=== PATIENT | female | born 1975 | race Caucasian/White ===

== ENCOUNTER 2023-01-21 21:01 | Emergency (ER) | payer OTHER, SELFPAY ==
--- NOTE | ~2023-01-21 | CT_ITS ---
EXAMINATION: CT ABDOMEN AND PELVIS WITHOUT CONTRAST CLINICAL INFORMATION: Right-sided abdominal pain. COMPARISON: None available. TECHNIQUE: Multidetector volumetric imaging was performed from the superior aspect of the liver through the pubic symphysis. Sagittal and coronal reformatted images were obtained on the technologist's workstation. This CT examination was performed using dose optimization techniques as appropriate, variously including the following: *Automated exposure control *Adjustment of mA and/or kV according to patient size (this includes techniques or standardized protocols for targeted exams where dose is matched to indication/reason for exam; i.e. extremities or head) *Use of iterative reconstruction technique DLP: 439 mGy-cm FINDINGS: LUNG BASES: The visualized lung bases are unremarkable. LIVER, GALLBLADDER, AND BILIARY TREE: The liver is of mild diminished attenuation. No focal liver lesions are seen. There is no intrahepatic biliary duct dilatation The gallbladder is unremarkable with no evidence of radiopaque gallstones, gallbladder wall thickening, or obvious pericholecystic inflammatory changes. PANCREAS: Unremarkable. SPLEEN: Unremarkable. ADRENAL GLANDS: Unremarkable. KIDNEYS AND URETERS: The kidneys are normal in size, shape, and attenuation. There is a 1 mm calculus upper pole right kidney and a 2 mm calculus lower pole left kidney. There is no hydronephrosis. BLADDER: Unremarkable. GASTROINTESTINAL TRACT: The small and large bowel are unremarkable. The appendix is unremarkable. ABDOMINAL WALL: No significant hernia is appreciated. LYMPH NODES: Normal. VASCULAR: Unremarkable. PELVIC VISCERA: Unremarkable. OSSEOUS STRUCTURES: Unremarkable. CT/CT abdomen pelvis wo IV con IMPRESSION: Nonobstructing renal calculi. Mild fatty infiltration of the liver. No acute intra-abdominal process. Fleischner guidelines were followed.
[2023-01-21 21:06] VITALS: BP 155/93; PULSE 72; RESP 16; TEMP 36.4; O2SAT 98; BMI 26.2
--- NOTE | 2023-01-21 21:26 | MHC.EDTECH ---
Patient brought in from waiting area, labs and urine were obtained and sent to lab.
[2023-01-21 21:31] LABS: MANUAL DIFF FLAG NO
[2023-01-21 21:32] LABS: Basophils Absolute Auto 0.1 X10*3/uL (0.0-0.2); Basophils Percent Auto 0.6 % (0-2); Eosinophils Absolute Auto 0.1 X10*3/uL (0.0-0.4); Hematocrit 40.2 % (37.0-47.0); Hemoglobin 13.4 g/dl (12.0-16.0); Imm Gran Abs Auto 0.03 X10*3/uL (0.00-0.03); Imm Gran Pct Auto 0.3 % (0.0-0.4); Lymphocytes Percent Auto 37.8 % (20-40); Mean Corpuscular HGB Conc 33.3 g/dl (31.0-35.0); Mean Corpuscular Hemoglobin 28.1 pg (27.0-33.0); Mean Corpuscular Volume 84.3 fL (80.0-98.0); Monocytes Absolute Auto 0.7 X10*3/uL (0.1-1.2); Monocytes Percent Auto 6.3 % (2-11); Neutrophils Absolute Auto 5.7 x10*3/uL (2.0-8.3); Platelet Count 383 X10*3/uL (160-400); Red Blood Count 4.77 X10*6/uL (4.20-5.50); Red Cell Distribution Width 13.4 % (11.0-16.0); White Blood Count 10.5 X10*3/uL (4.8-10.8)
[2023-01-21 21:34] LABS: Appearance Urine Clear; Color Urine Yellow; Glucose Urine UA Negative (Negative); Leukocyte Esterase Urine Negative (Negative); Nitrite Urine Negative (Negative); UMIC TRIGGER UACC YES; Urine Blood Trace (Negative); Urine Ketones Negative (Negative); Urine Protein Negative (Neg-Trace)
[2023-01-21 21:36] LABS: Bacteria Urine None Seen (None Seen); Hyaline Casts Urine 0-2 /LPF (0-2); RBC Urine 0-2 /HPF (0-2); Squamous Epithelial Cell Urine 0-2 /HPF (0-2); WBC Urine 0-5 /HPF (0-5)
[2023-01-21 21:46] LABS: Alanine Aminotransferase 25 U/L (0-31); Albumin Level 4.7 g/dL (3.5-5.0); Alkaline Phosphatase 40 U/L (39-117); Anion Gap 14 (12-20); Aspartate Amino Transferase 16 U/L (5-31); Bilirubin Direct 0.1 mg/dL (0.0-0.5); Bilirubin Total 0.3 mg/dL (0.0-1.0); Blood Urea Nitrogen 11 mg/dL (9-16); Calcium 9.8 mg/dL (8.4-10.2); Carbon Dioxide 27 mmol/L (22-29); Chloride 107 mmol/L (96-108); Creatinine Clr Calc Pharmacy 93.6; Estimated Glomerular Filt Rate > 60; Glucose Random 109 mg/dL (60-115); Lipase 32 U/L (8-78); Potassium 3.7 mmol/L (3.3-5.1); Sodium 144 mmol/L (135-145); Total Protein 8.5 g/dL (6.5-8.0)
--- NOTE | 2023-01-21 22:27 | ED.ABDPAIN ---
HPI - Abdominal Pain General Chief Complaint: Abdominal Pain Stated Complaint: Right side pain burning sensation,nausea Time Seen by Provider: 01/21/23 22:27 Source: patient Mode of arrival: ambulatory Limitations: no limitations History of Present Illness HPI narrative: Patient with chronic lower abdominal pain after hysterectomy last year was told that she has a cyst came from [place] 3 days ago complaining of pain for last 3 days in right upper abdomen also assisted with nausea no vomiting no diarrhea no fever or chills patient never had similar pain in the past does have some heartburn sedation no urinary symptoms no hematuria bowel movements been normal Related Data Previous Rx's Medication Instructions Recorded pantoprazole 40 mg tablet,delayed 40 mg PO DAILY #30 tabs 01/22/23 release (Protonix) tramadol 50 mg tablet 50 mg PO Q6H PRN pain #20 tabs 01/22/23 Allergies Allergy/AdvReac Type Severity Reaction Status Date / Time No Known Allergies Allergy Verified 01/21/23 21:16 Review of Systems Review of Systems Yes all other systems are reviewed and are negative PMFSH Past Medical History Medical History Ovarian cyst Surgical History History of hysterectomy Social History Social History Alcohol intake: never Smoked in Last 30 Days: No Use of substances other than those prescribed or required for medical reasons: No Advance Directives: No Advance Directives Information Provided: Yes Patient : No Physical Exam ED Vital Signs: Vital Signs - 24 hr 01/21/23 21:06 01/21/23 23:52 Temperature 97.6 F 97.8 F Pulse Rate 72 77 Respiratory Rate 16 18 Blood Pressure 155/93 H 125/74 Pulse Oximetry 98 98 Oxygen Delivery Method Room Air Room Air BMI result Body Mass Index 26.2 Appearance: Alert. Oriented X3. No acute distress. Eyes: No pallor or icterus ENT: Pharynx normal. Oral Mucosa moist Neck: Normal inspection. Neck supple. CVS: Normal heart rate and rhythm. Pulses normal. Respiratory: No respiratory distress. Equal air entry bilateral, Abdomen: Soft , deep tenderness suprapubic area and right upper quadrant no rebound tenderness or guarding Bowel sounds are present, no mass palpable, no CVA tenderness Skin: Skin warm and dry. Normal skin color. Normal skin turgor. Extremities: No lower extremity edema. No calf tenderness Neuro: Oriented X 3. Medical Decision Making Medical Decision Making [facility] Narrative: Patient has nonspecific pain in right upper quadrant epigastric or with no history of gallstones in the past patient had evaluation done for similar pain last year at [place] which was negative. Here also patient labs are stable CT scan showed no gallstones or kidney stone does have fatty liver may be the cause of the pain will discharge home on PPI advised for dietary restriction Differential Diagnosis Differential Diagnoses: The differential diagnosis associated with the presentation includes Ovarian cyst/gallstones/gastritis/kidney stone Lab Data [facility] Lab Attestation statement: I reviewed the patient's lab results. 01/21/23 21:24 01/21/23 21:24 Labs: Lab Results 01/21/23 Range/Units 21:24 WBC 10.5 (4.8-10.8) X10*3/uL RBC 4.77 (4.20-5.50) X10*6/uL Hgb 13.4 (12.0-16.0) g/dl Hct 40.2 (37.0-47.0) % MCV 84.3 (80.0-98.0) fL MCH 28.1 (27.0-33.0) pg MCHC 33.3 (31.0-35.0) g/dl RDW 13.4 (11.0-16.0) % Plt Count 383 (160-400) X10*3/uL MPV 9.0 L (9.4-12.3) fL Immature Gran % (Auto) 0.3 (0.0-0.4) % Neut % (Auto) 54.0 (45-73) % Lymph % (Auto) 37.8 (20-40) % [place] % (Auto) 6.3 (2-11) % Eos % (Auto) 1.0 (0-4) % Baso % (Auto) 0.6 (0-2) % Lymph # (Auto) 4.0 (1.2-4.9) X10*3/uL [place] # (Auto) 0.7 (0.1-1.2) X10*3/uL Eos # (Auto) 0.1 (0.0-0.4) X10*3/uL Baso # (Auto) 0.1 (0.0-0.2) X10*3/uL Abs Immat Gran (auto) 0.03 (0.00-0.03) X10*3/uL Absolute Neuts (auto) 5.7 (2.0-8.3) x10*3/uL Absolute Nucleated RBC 0.000 (0.0-0.012) X10*3/uL Nucleated RBC % (auto) 0.0 (0.0-0.2) /100WBC Sodium 144 (135-145) mmol/L Potassium 3.7 (3.3-5.1) mmol/L Chloride 107 (96-108) mmol/L Carbon Dioxide 27 (22-29) mmol/L Anion Gap 14 (12-20) BUN 11 (9-16) mg/dL Creatinine 0.69 (0.5-1.4) mg/dL Estim Creat Clear Calc 93.6 Estimated GFR > 60 Random Glucose 109 (60-115) mg/dL Calcium 9.8 (8.4-10.2) mg/dL Total Bilirubin 0.3 (0.0-1.0) mg/dL Direct Bilirubin 0.1 (0.0-0.5) mg/dL AST 16 (5-31) U/L ALT 25 (0-31) U/L Alkaline Phosphatase 40 (39-117) U/L Total Protein 8.5 H (6.5-8.0) g/dL Albumin 4.7 (3.5-5.0) g/dL Lipase 32 (8-78) U/L Urine Color Yellow Urine Appearance Clear Urine pH 6.0 (5.0-9.0) Ur Specific [place] 1.010 (1.005-1.025) Urine Protein Negative (Neg-Trace) mg/dL Urine Glucose (UA) Negative (Negative) mg/dL Urine Ketones Negative (Negative) mg/dL Urine Blood Trace H (Negative) Urine Nitrite Negative (Negative) Ur Leukocyte Esterase Negative (Negative) Urine RBC 0-2 (0-2) /HPF Urine WBC 0-5 (0-5) /HPF Ur Squamous Epith Cells 0-2 (0-2) /HPF Urine Bacteria None Seen (None Seen) Hyaline Casts 0-2 (0-2) /LPF Independent Interpretation I performed an independent interpretation of an: CT Scan Radiology Impression Discussion of test interpretation with radiology: I have reviewed the radiologist's reading. Medications Administered Discontinued Medications Generic Name Dose Route Start Last Admin Trade Name Freq PRN Reason Stop Dose Admin Famotidine 20 mg 01/21/23 22:55 01/21/23 23:27 Famotidine/Pf 20 Mg/2 Ml Vial IVPUSH 01/21/23 22:56 20 mg ONCE ONE Administration Sodium Chloride 1,000 mls @ 999 mls/hr 01/21/23 22:55 01/21/23 23:28 Ns IV 01/21/23 23:55 999 mls/hr .Q1H1M ONE Administration Ketorolac Tromethamine 30 mg 01/21/23 22:55 01/21/23 23:27 Ketorolac Tromethamine 30 Mg/Ml Vial IVPUSH 01/21/23 22:56 30 mg ONCE ONE Administration Ondansetron HCl 4 mg 01/21/23 22:55 01/21/23 23:27 Ondansetron Hcl 4 Mg/2 Ml Vial IVPUSH 01/21/23 22:56 4 mg ONCE ONE Administration Discharge Plan Discharge Clinical Impression: Fatty liver, Chronic abdominal pain Patient Disposition: Home, Self-Care Instructions: Non-Alcoholic Fatty Liver Disease (ED), Chronic Abdominal Pain (ED) Additional Instructions: Decreased carbohydrate intake Medication for acid reflux as prescribed Tramadol for chronic pain Do not take ibuprofen/Advil Disminuci?n de la ingesta de carbohidratos Medicamentos para el reflujo ?cido seg?n lo recetado. Tramadol para el dolor cr?buck No tome ibuprofeno/Advil Prescriptions: New pantoprazole [Protonix] 40 mg tablet,delayed release (DR/EC) 40 mg PO DAILY Qty: 30 0RF tramadol 50 mg tablet 50 mg PO Q6H PRN (Reason: pain) Qty: 20 0RF Print Language: Portuguese
[2023-01-21] MEDS: ondansetron HCL 4 MG/2 ML VIAL IVPUSH (23:27)
[2023-01-21] MEDS: Famotidine/PF 20 MG/2 ML VIAL IVPUSH (23:27)
[2023-01-21] MEDS: Ketorolac Tromethamine 30 MG/ML VIAL IVPUSH (23:27)
[2023-01-21] MEDS: 0.9 % Sodium Chloride 1,000 ML 999 ML IV (23:28)
[2023-01-21 23:52] VITALS: BP 125/74; PULSE 77; RESP 18; TEMP 36.6; O2SAT 98
== END 2023-01-22 00:45 | disposition home or self-care (01) ==
PROVIDERS: Emergency Provider Internal Medicine
DX: K76.0 Fatty (change of) liver, not elsewhere classified (principal); G89.29 Other chronic pain; R10.31 Right lower quadrant pain; R10.11 Right upper quadrant pain; Z90.710 Acquired absence of both cervix and uterus
CPT/HCPCS: 36415; 74176; 80048; 80076; 81001; 83690; 85025; 96361; 96374; 96375; 99284; J1885; J2405

== ENCOUNTER 2025-01-07 12:41 | Emergency (ER) | payer MEDICAID, SELFPAY ==
--- NOTE | ~2025-01-07 | CT_ITS ---
CLINICAL HISTORY: abdominal pain CT abdomen and pelvis with contrast Comparison: CT/SR - CT ABDOMEN PELVIS WITHOUT IV CONTRAST - 01/21/23 23:13 EST Findings: The lung bases are clear. The gallbladder and solid organs are within normal limits. No renal stones. In the ileum, distal heterogeneous low-attenuation lesion, 2.2 cm, axial image number 76 of 105 series 3. The appendix is within normal limits. No acute fracture. IMPRESSION: 1. Distal ileal lesion, 2.2 cm, heterogeneous and low-attenuation suggestive of probable Meckel's diverticulum. 2. No acute intraabdominal or pelvic findings. This document has been electronically signed by: Roberto Azul MD on 01/07/2025 23:27:23
[2025-01-07 13:06] VITALS: BP 117/62; PULSE 65; RESP 16; TEMP 36.8; O2SAT 97; BMI 23.2
--- NOTE | 2025-01-07 13:08 | ED_ITS ---
HPI - General Adult General Chief complaint: Abdominal Pain Stated complaint: R Side Abd Pain No Appetite Time Seen by Provider: 01/07/25 19:35 Source: patient and foreign language interpreter Mode of arrival: ambulatory Limitations: language barrier History of Present Illness ED Provider: HPI narrative: 49-year-old woman just got here from [place], has been having right upper quadrant pain, sounds like she has had significant workup including 2 ultrasounds, endoscopy, they could not do colonoscopy, recurrent constipation, sounds like she was also treated for presumed H pylori but then the biopsy came back negative she is here with a son, patient has [facility] to find out what is going on with her abdomen according to her son just obtained health insurance. Has a history of hysterectomy and . Related Data Previous Rx's ?Medication ?Instructions ?Recorded pantoprazole 40 mg tablet,delayed 40 mg PO DAILY #30 t abs 01/22/23 release (Protonix) tramadol 50 mg tablet 50 mg PO Q6H PRN pain #20 ta bs 01/22/23 omeprazole 40 mg capsule,delayed 40 mg PO DAILY 90 day s #90 caps 01/07/25 release ondansetron 4 mg disintegrating 4 mg PO Q8H PRN nausea and 01/07/25 tablet vomiting #4 tabs sucralfate 1 gram tablet (Carafate) 1 g PO Q6H 7 days #28 tabs 01/07/25 Allergies Allergy/AdvReac Type Severity Reaction Status Date / Time No Known Allergies Allergy Verified 01/07/25 13:10 Review of Systems 2 Constitutional: Constitutional: Reports as per [facility] Past Medical History Medical History Ovarian cyst Surgical History History of hysterectomy Social History Social History Alcohol intake: never Advance Directives: No Advance Directives Information Provided: Yes Physical Exam ED Exam Exam: General: ?Appears of stated age ? ?PERRLA, EOMI, MMM, ? Neck: Supple, no LAD ? ?CV: RRR, no obvious murmurs appreciated ? ?Resp: ?No wheezing rales rhonchi no stridor moving air well ? Abd: ?Bowel sounds are present, epigastric, right upper quadrant and generalized tenderness no distention no rigidity no guarding ? ?MSK: FROM, strength 5/5 all extremities ? Skin: Warm, dry, intact, ? ?Neuro: ?Alert and oriented x3, moving upper and lower extremities symmetrically, no obvious facial asymmetry noted, cranial nerves 2-12 intact Vital Signs: Vital Signs - 24 hr 01/07/25 13:06 01/07/25 18:45 01/07/25 22:13 Temperature 98.2 F 98.2 F Pulse Rate 65 69 64 Respiratory Rate 16 18 18 Blood Pressure 117/62 114/74 113/69 Pulse Oximetry 97 100 98 Oxygen Delivery Method Room Air Room Air Room Air BMI result Body Mass Index 23.2 Course Course Course Narrative: Rapid medical examination performed in triage by Shirley Naqvi PA-C: Patient is a 49 year old assigned female at presenting to the emergency department with abdominal pain. Detailed physical exam and review of systems are deferred to the mine technician. Labs ordered. Patient placed back in the waiting room pending room availability and results. Medications Administered Discontinued Medications Generic Name Dose Route Start Last Admin Trade Name Freq PRN Reason Stop Dose Admin Al Hydroxide/Mg Hydroxide 15 ml 01/07/25 20:36 01/07/25 22:02 Magnesium Hydrox/Alum Hydrox 30 Ml Oral.Susp PO 01/07/25 20:37 15 ml ONCE ONE Administration Belladonna Alkaloids/Phenobarbital 10 ml 01/07/25 20:36 01/07/25 22:02 Phenobarb/Hyoscy/Atropine/Scop 10 Ml Elixir PO 01/07/25 20:37 10 ml ONCE ONE Administration Famotidine 20 mg 01/07/25 20:36 01/07/25 22:02 Famotidine/Pf 20 Mg/2 Ml Vial IVPUSH 01/07/25 20:37 20 mg ONCE ONE Administration Iohexol 85 ml 01/07/25 22:31 01/07/25 22:31 Iohexol 350 Mg/Ml 100 Ml Infus..Btl IV 01/07/25 22:32 85 ml ONCE ONE Administration Lidocaine HCl 15 ml 01/07/25 20:36 01/07/25 22:02 Lidocaine Hcl Viscous 2 % 15 Ml Solution PO 01/07/25 20:37 15 ml ONCE ONE Administration Ondansetron HCl 4 mg 01/07/25 20:36 01/07/25 22:01 Ondansetron Hcl 4 Mg/2 Ml Vial IVPUSH 01/07/25 20:37 4 mg ONCE ONE Administration Medical Decision Making Medical Decision Making [facility] Narrative: 8:42 PM 01/07/2025 (Dr. Tha Figueroa): Sounds like patient had fairly involved workup in [place] but now we will be pneumonitis states and trying to get different answers regarding her abdominal pain, blood work is reassuring, no evidence for dehydration, no elevation of the LFTs, she did have ultrasound reportedly twice offered a CAT scan, symptomatic control, she is otherwise stable Differential Diagnosis Differential Diagnoses: The differential diagnosis associated with the presentation includes (Cholecystitis, pancreatitis, hepatitis, gastritis, cholangitis, choledocholithiasis, SBO, IBS) Admission/Observation Consideration of admission/observation: Escalation of care including admission/observation considered Lab Data [facility] Lab Attestation statement: I reviewed the patient's lab results. 01/07/25 13:26 01/07/25 13:26 Labs: Lab Results 01/07/25 01/07/25 Range/Units 13:26 18:46 WBC 10.6 (4.8-10.8) X10*3/uL RBC 4.82 (4.20-5.50) X10*6/uL Hgb 13.5 (12.0-16.0) g/dl Hct 40.6 (37.0-47.0) % MCV 84.2 (80.0-98.0) fL MCH 28.0 (27.0-33.0) pg MCHC 33.3 (31.0-35.0) g/dl RDW 13.1 (11.0-16.0) % Plt Count 306 (160-400) X10*3/uL MPV 10.0 (9.4-12.3) fL Immature Gran % (Auto) 0.4 (0.0-0.4) % Neut % (Auto) 68.4 (45-73) % Lymph % (Auto) 22.7 (20-40) % [place] % (Auto) 6.8 (2-11) % Eos % (Auto) 1.0 (0-4) % Baso % (Auto) 0.7 (0-2) % Lymph # (Auto) 2.4 (1.2-4.9) X10*3/uL [place] # (Auto) 0.7 (0.1-1.2) X10*3/uL Eos # (Auto) 0.1 (0.0-0.4) X10*3/uL Baso # (Auto) 0.1 (0.0-0.2) X10*3/uL Abs Immat Gran (auto) 0.04 H (0.00-0.03) X10*3/uL Absolute Neuts (auto) 7.2 (2.0-8.3) x10*3/uL Absolute Nucleated RBC 0.000 (0.0-0.012) X10*3/uL Nucleated RBC % (auto) 0.0 (0.0-0.2) /100WBC Sodium 141 (135-145) mmol/L Potassium 4.1 (3.3-5.1) mmol/L Chloride 105 (96-108) mmol/L Carbon Dioxide 31 H (22-29) mmol/L Anion Gap 9 L (12-20) BUN 18 H (9-16) mg/dL Creatinine 0.76 (0.5-1.4) mg/dL Estim Creat Clear Calc 71.6 Estimated GFR > 60 Random Glucose 118 H (60-115) mg/dL Calcium 9.6 (8.4-10.2) mg/dL Magnesium 1.7 (1.6-2.6) mg/dL Total Bilirubin 0.4 (0.0-1.0) mg/dL AST 16 (5-31) U/L ALT 18 (0-31) U/L Alkaline Phosphatase 43 (39-117) U/L Total Protein 7.7 (6.5-8.0) g/dL Albumin 4.5 (3.5-5.0) g/dL Urine Color Yellow Urine Appearance Clear Urine pH 6.0 (5.0-9.0) Ur Specific [place] 1.010 (1.005-1.025) Urine Protein Negative (Neg-Trace) mg/dL Urine Glucose (UA) Negative (Negative) mg/dL Urine Ketones Negative (Negative) mg/dL Urine Blood Negative (Negative) Urine Nitrite Negative (Negative) Ur Leukocyte Esterase Negative (Negative) Radiology Impression Discussion of test interpretation with radiology: I have reviewed the radiologist's reading. (1. Distal ileal lesion, 2.2 cm, heterogeneous and low- attenuation suggestive of probable Meckel's diverticulum. 2. No acute intraabdominal or pelvic findings.) Discharge Plan Discharge Clinical Impression: Abdominal pain, chronic, epigastric, Gastritis Patient Disposition: Home, Self-Care Additional Instructions: Your CAT scan did not reveal any abnormalities, your blood work is reassuring, I recommend you take omeprazole, for the next 1 week Carafate 1 pill 20 minutes before any meals Zofran as needed for nausea and vomiting, you can use MiraLax 3 times a day if you feel that you are constipated with that said in order to produce adequate amount of stool you need to eat on a regular basis and make sure that you were diet contains fiber, there is [id number] Metamucil which is fiber a new can dissolved in a cup of water and drink daily or twice daily it will help you to improve your stools Bo tomograf?a computarizada no revel? ninguna anomal?a y ag an?lisis de astrid son normales. Le recomiendo peri omeprazol susan la pr?xima semana. Tambi?n le sugiero peri bhanu pastilla de Carafate 20 minutos antes de las comidas. Puede peri Zofran seg?n sea necesario para las n?useas y los v?mitos. Si siente estre?imiento, puede usar MiraLax itz veces al d?a. Para evacuar con regularidad, es importante comer con frecuencia y asegurarse de que bo dieta contenga fibra. Puede adquirir Metamucil, un suplemento de fibra de venta uli; disuelva bhanu linda nueva en bhanu taza de agua y b?balo bhanu o dos veces al d?a para mejorar la regularidad intestinal. Prescriptions: New sucralfate [Carafate] 1 gram tablet 1 g PO Q6H 7 Days Qty: 28 0RF ondansetron 4 mg tablet,disintegrating 4 mg PO Q8H PRN (Reason: nausea and vomiting) Qty: 4 0RF omeprazole 40 mg capsule,delayed release(DR/EC) 40 mg PO DAILY 90 Days Qty: 90 0RF No Action pantoprazole [Protonix] 40 mg tablet,delayed release (DR/EC) 40 mg PO DAILY Qty: 30 0RF tramadol 50 mg tablet 50 mg PO Q6H PRN (Reason: pain) Qty: 20 0RF Print Language: Jamaican
[2025-01-07 13:32] LABS: MANUAL DIFF FLAG NO
[2025-01-07 13:37] LABS: Hematocrit 40.6 % (37.0-47.0); Hemoglobin 13.5 g/dl (12.0-16.0); Imm Gran Abs Auto 0.04 X10*3/uL (0.00-0.03); Imm Gran Pct Auto 0.4 % (0.0-0.4); Lymphocytes Absolute Auto 2.4 X10*3/uL (1.2-4.9); Mean Corpuscular HGB Conc 33.3 g/dl (31.0-35.0); Mean Corpuscular Hemoglobin 28.0 pg (27.0-33.0); Mean Corpuscular Volume 84.2 fL (80.0-98.0); NRBC Abs Auto 0.000 X10*3/uL (0.0-0.012); NRBC Pct Auto 0.0 /100WBC (0.0-0.2); Platelet Count 306 X10*3/uL (160-400); Red Blood Count 4.82 X10*6/uL (4.20-5.50); White Blood Count 10.6 X10*3/uL (4.8-10.8)
[2025-01-07 13:53] LABS: Alanine Aminotransferase 18 U/L (0-31); Albumin Level 4.5 g/dL (3.5-5.0); Alkaline Phosphatase 43 U/L (39-117); Anion Gap 9 (12-20); Aspartate Amino Transferase 16 U/L (5-31); Blood Urea Nitrogen 18 mg/dL (9-16); Calcium 9.6 mg/dL (8.4-10.2); Carbon Dioxide 31 mmol/L (22-29); Chloride 105 mmol/L (96-108); Creatinine Clr Calc Pharmacy 71.6; Estimated Glomerular Filt Rate > 60; Magnesium 1.7 mg/dL (1.6-2.6); Potassium 4.1 mmol/L (3.3-5.1); Sodium 141 mmol/L (135-145); Total Protein 7.7 g/dL (6.5-8.0)
[2025-01-07 18:45] VITALS: BP 114/74; PULSE 69; RESP 18; O2SAT 100
[2025-01-07 18:52] LABS: Appearance Urine Clear; Glucose Urine UA Negative (Negative); PH 6.0 (5.0-9.0); Specific Gravity - Urine 1.010 (1.005-1.025)
--- NOTE | 2025-01-07 21:00 | PC.NURSE ---
delay in digital media representative as awaiting family services manager to administer. IV established to LAC, nad. pt appears comfortable at this time.
[2025-01-07] MEDS: Magnesium Hydrox/Alum Hydrox 30 ML ORAL.SUSP 15 ML PO (22:02)
[2025-01-07] MEDS: PHENobarb/Hyoscy/Atropine/Scop 10 ML ELIXIR PO (22:02)
[2025-01-07] MEDS: Lidocaine HCl Viscous 2 % 15 ML SOLUTION PO (22:02)
[2025-01-07 22:13] VITALS: BP 113/69; PULSE 64; RESP 18; TEMP 36.8; O2SAT 98
[2025-01-07] MEDS: iohexoL 350 MG/ML 100 ML INFUS..BTL 85 ML IV (22:31)
[2025-01-08 00:16] VITALS: BP 105/63; PULSE 69; RESP 18; TEMP 36.8; O2SAT 98
[2025-01-08 00:17] VITALS: BP 105/63; PULSE 69; RESP 18; TEMP 36.8; O2SAT 98
== END 2025-01-08 00:18 | disposition home or self-care (01) ==
PROVIDERS: Physician Assistant Medical; Emergency Provider Emergency Medicine
DX: R10.13 Epigastric pain (principal); K29.70 Gastritis, unspecified, without bleeding
CPT/HCPCS: 36415; 74177; 80053; 81003; 83735; 85025; 96374; 96375; 99284; 99285; J1308; J2405; Q9967

== ENCOUNTER → 2025-01-07 20:37 | Outpatient (BNV) | payer MEDICAID, SELFPAY | PROVIDERS: Emergency Provider Emergency Medicine; Visit Provider Radiology Diagnostic Radiology | DX: K63.9 Disease of intestine, unspecified (principal) | CPT/HCPCS: 74177 ==

== ENCOUNTER 2025-02-08 12:46 | Outpatient (REF) | payer MEDICAID, SELFPAY ==
--- OUTSIDE RECORDS SUMMARY | 2025-02-08 10:45 | XMS_ITS | Encounter Summary ---
Author Organization [employer] Address [address] [place] [address] Care Team Providers Care Cryptography Teacher Name Role Phone Dallas Martin CNP Primary Care Provider [phone] Encounter Details Date Type Department Care Team ([facility] st Contact Info) Description 02/08/2025 10:45 AM EST Office Visit [facility] [address], [place] [phone] Dallas Martin CNP [address] [place] [address] Type 2 diabetes mellitus with other specified complication, without long-term current use of insulin ([facility]) (Primary Dx); Neuropathy; Gastroesophageal reflux disease, unspecified whether esophagitis present; Encounter to establish care; Encounter for immunization; Genitourinary syndrome of menopause Social History Tobacco Use Types Packs/Day Years Used Date Smoking Tobacco: Never Smokeless Tobacco: Never Tobacco Cessation:Counseling Given: Not Answered Comments No Sex and Gender Information Value Date Recorded Sex Assigned at Female 02/06/2025 10:49 AM EST Legal Sex Female 10:32 AM EST Gender Identity Female 02/06/2025 10:49 AM EST Sexual Orientation Straight 02/06/2025 10 :49 AM EST documented as of this encounter Last Filed Vital Signs Vital Sign Reading Time Taken Comments Blood Pressure 122/84 02/08/2025 10:46 AM EST Pulse 80 02/08/2025 10:46 AM EST Temperature 36.6 C (97.8 F) 02/08/2025 10:46 AM EST Respiratory Rate 12 02/08/2025 10:46 AM EST Oxygen Saturation 98% 02/08/2025 10:46 AM EST Inhaled Oxygen Concentration - - Weight 58.5 kg (129 lb) 02/08/2025 10:46 AM EST Height 160 cm (5' 3 ) 02/08/2025 10:46 AM EST Body Mass Index 22.85 02/08/2025 10:46 AM EST documented in this encounter Progress Notes * Dallas MartinROSEMARY - 02/08/2025 10:45 AM EST Subjective: Blaire Patino is a 49 y.o. female with PMH of T2DM, Venous Insufficiency, neuropathy, gastritis, pancreatitis, hiatal hernia who presents to the office for a new patient visit. Previous PCP unknown. Interim history: Recently relocated from [place] due to poor medical care in regards to her ongoing GI problems. Pt recently seen at [facility] ED for abdominal pain 01/19/25. CT scan showed mild-moderate stool retention otherwise no primary intrabdominal pathology. Labs unremarkeable.She was provided number for [facility] and prescribed zofran and enema. She also has MoM, Miralax and colace. Recently had colonoscopy at [facility] one small 5mm polyp found and removed, also noted internal and external hemorrhoids, otherwise unremarkeable colon, pt has ongoing history of abdominal pain and rectal bleeding. H. Pylori negative Currently on FODMAP diet, taking protonix BID She reports unintended weight loss of 40lbs over past 6 mos. Has next appointment with gastro 02/19/25 Current concerns: Establishing care and obtaining updated cholesterol levels. She reports longstanding hypercholesterolemia. She used to take statin and lovaza. She is still on atorvastatin 10mg. She does exercise andshe eats well, following FODMAP diet. Believes there is a possible hereditary component for persistent elevations. Problem List[1] Surgical History[2] Family History[3] Social History Living situation: has secure housing Employment/Education: not reported Diet/exercise: see above Substance use: denies substance use Sexual activity: not reported Contraception: Hysterectomy Mental health: No data recorded No data recorded No LMP recorded. Patient has had a hysterectomy. Allergies[4] Review of Systems Vitals: 02/08/25 1046 BP: 122/84 BP Location: Left arm Patient Position: Sitting BP Cuff Size: Adult Pulse: 80 Resp: 12 Temp: 97.8 ??F (36.6 ??C) TempSrc: Oral SpO2: 98% Weight: 129 lb (58.5 kg) Height: 5' 3 (1.6 m) Physical Exam Constitutional: Appearance: Normal appearance. She is normal weight. Cardiovascular: Rate and Rhythm: Normal rate and regular rhythm. Pulses: Normal pulses. Heart sounds: Normal heart sounds. No murmur heard. No friction rub. No gallop. Pulmonary: Effort: Pulmonary effort is normal. No respiratory distress. Breath sounds: Normal breath sounds. No wheezing or rales. Neurological: General: No focal deficit present. Mental Status: She is alert and oriented to person, place, and time. Psychiatric: Mood and Affect: Mood normal. Behavior: Behavior normal. Thought Content: Thought content normal. Judgment: Judgment normal. Assessment & Plan Type 2 diabetes mellitus with other specified complication, without long-term current use of insulin ([facility]) Lab Results Component Value Date HGBA1C 5.7 02/08/2025 Disease course is stable She is adherent to medications and follows low FODMAP diet, she exercises regularly. I refilled her medications and sent SMBG supplies She is to continue on current statin therapy pending FLP. I referred her for eye exam Orders: POCT A1c POCT glucose manually resulted glipiZIDE (Glucotrol) 5 MG tablet; Take 1 tablet (5 mg) by mouth before breakfast and before evening meal. lisinopril 2.5 MG tablet; Take 1 tablet (2.5 mg) by mouth Once per day. atorvastatin (Lipitor) 10 MG tablet; Take 1 tablet (10 mg) by mouth Once per day. omega-3 acid ethyl esters (Lovaza) 1 g capsule; Take 1 capsule (1 g) by mouth 2 times daily. CBC auto differential; Future Hemoglobin A1c; Future Comprehensive Metabolic Panel; Future Lipid Panel, Standard; Future Albumin, Random Urine W/Creatinine; Future FREESTYLE LITE test strip; Use to test blood sugar 3 times daily Lancets misc; Use to test blood sugar 3 times daily Alcohol Swabs 70 % pads; Use to test blood sugar 3 times daily Blood Glucose Monitoring Suppl (FreeStyle [place] Lite) w/Device kit; Use to test blood sugar 3 times daily Neuropathy Pt has ongoing neuropathy since being diagnosed with DM. She uses gabapentin but reports mild effect with current dose. I recommend increasing frequency to twice daily to manage symptoms. Orders: gabapentin (Neurontin) 400 MG capsule; Take 1 capsule (400 mg) by mouth 3 times daily. Gastroesophageal reflux disease, unspecified whether esophagitis present I refilled pepcid I prescribed probiotic given pt longstanding history of antibiotic use for GI infections She is to f/u with GI, we reviewed colonoscopy results together today which were normal I advised against nsaid use Orders: famotidine (Pepcid) 20 MG tablet; Take 1 tablet (20 mg) by mouth 2 times daily. Probiotic, Lactobacillus, capsule; Take 1 capsule by mouth Once per day. Encounter to establish care 1. Anticipatory guidance discussed. Specific topics reviewed: drugs, ETOH, and tobacco, importance of regular dental care, importance of regular exercise, importance of varied diet, minimize junk food, and sex; STD and prevention as appropriate. 2. Age appropriate screenings discussed. 3. Performed medication reconcliation and refilled appropriate medications. She reports that she takes estrace 1mg daily, previously she was using topical formulation. Due to her history of CAD and hyperlipidemia, oral formulations should be held at this point. And topical formulations preferred. 4. She is to bring her medical records to be scanned. Routine Screening and Health Maintenance Optometry: No Dentist: No ASCVD risk: 49 y.o. femalediabetic existing CAD hypertension hyperlipidemia Lab Review: orders written for new lab studies as appropriate; see orders Routine Cancer Screening Breast CA: reports recent mammo in past year, she provided records today. Cervical CA: no longer indicated Colon CA: up to date, provided records today Orders: HIV-1/2 Antigen and Antibodies, Fourth Generation, with Reflexes; Future Hepatitis C Antibody with Reflex to HCV, RNA, Quantitative, Real-Time PCR; Future Encounter for immunization She agrees to all due vaccinations but declines COVID Orders: FLU VACCINE TRIVALENT [id number] (Fluarix) 19 yrs + TDAP VACCINE 7 yrs + HEPLISAV-B VACCINE ADULT 19 yrs + Current Medications[5] Immunization History Administered Date(s) Administered HepB-CpG 02/08/2025 Influenza, seasonal, injectable, preservative free 02/08/2025 Tdap 02/08/2025 Follow up in about 3 months (around 05/09/2025) for chronic conditions f/u . [1] There is no problem list on file for this patient. [2] Past Surgical History: Procedure Laterality Date HYSTERECTOMY [3] No family history on file. [4] No Known Allergies [5] Current Outpatient Medications Medication Sig Dispense Refill Na Sulfate-K Sulfate-Mg Sulf (Suprep Bowel Prep Kit) 17.5-3.13-1.6 GM/177ML solution See Instructions, see colonoscopy instructions, # 1 kit, 0 Refills, Maintenance, 01/22/25 5:03:00 PM EST, [facility]/pharmacy #[id number], Partial fill upon patient request if the prescription is for a schedule II opioid drug.,see colonoscopy instructions, 160, cm, 01/22/25 16:19:00 EST, Height, 57.5, kg, 01/19/25 15:50:00 EST, Dry Weight pantoprazole (ProtoNix) 40 MG EC tablet Take 40 mg by mouth. PEG 3350 (Glycolax, Miralax) 2 gram packet Take 17 g by mouth. psyllium (Metamucil) 58.6 % packet Take 3.4 g by mouth. Alcohol Swabs 70 % pads Use to test blood sugar 3 times daily 100 each 11 atorvastatin (Lipitor) 10 MG tablet Take 1 tablet (10 mg) by mouth Once per day. 30 tablet 11 Blood Glucose Monitoring Suppl (FreeStyle [place] Lite) w/Device kit Use to test blood sugar 3 times daily 1 kit 0 famotidine (Pepcid) 20 MG tablet Take 1 tablet (20 mg) by mouth 2 times daily. 60 tablet 11 FREESTYLE LITE test strip Use to test blood sugar 3 times daily 100 each 12 gabapentin (Neurontin) 400 MG capsule Take 1 capsule (400 mg) by mouth 3 times daily. 90 capsule 11 glipiZIDE (Glucotrol) 5 MG tablet Take 1 tablet (5 mg) by mouth before breakfast and before eveningmeal. 60 tablet 11 Lancets misc Use to test blood sugar 3 times daily 100 each 11 lisinopril 2.5 MG tablet Take 1 tablet (2.5 mg) by mouth Once per day. 30 tablet 11 omega-3 acid ethyl esters (Lovaza) 1 g capsule Take 1 capsule (1 g) by mouth 2 times daily. 60 capsule 11 Probiotic, Lactobacillus, capsule Take 1 capsule by mouth Once per day. 30 capsule 11 No current facility-administered medications for this visit. documented in this encounter Plan of Treatment Scheduled Orders Name Type Priority Associated Diagnoses Orde r Schedule Hemoglobin A1c Lab Routine Type 2 diabetes mellitus with other specified complication, without long-term current use of insulin (HCC) Expected: 02/08/2025 (Approximate), Expires: 02/08/2026 Comprehensive Metabolic Panel Lab Routine Type 2 diabetes mellitus with other specified complication, without long-term current use of insulin (HCC) Expected: 02/08/2025 (Approximate), Expires: 02/08/2026 Lipid Panel, Standard Lab Routine Type 2 diabetes mellitus with other specified complication, without long-term current use of insulin (HCC) Expected: 02/08/2025 (Approximate), Expires: 02/08/2026 Albumin, Random Urine W/Creatinine Lab Routine Type 2 diabetes mellitus with other specified complication, without long-term current use of insulin (HCC) Expected: 02/08/2025 (Approximate), Expires: 02/08/2026 HIV-1/2 Antigen and Antibodies, Fourth Generation, with Reflexes Lab Routine Encounter to establish care Expected: 02/08/2025 (Approximate), Expires: 02/08/2026 Hepatitis C Antibody with Reflex to HCV, RNA, Quantitative, Real-Time PCR Lab Routine Encounter to establish care Expected: 02/08/2025, Expires: 02/08/2026 documented as of this encounter Goals Goal Patient Goal Type Associated Problems Recent Progress Patient-Stated? Author Help patients manage their type 2 diabetes Care Plan Help patients manage their type 2 diabetes No Dallas Martin CNP Patient has chronic kidney disease Care Plan Patient has chronic kidney disease No Dallas Martin CNP Weekly blood pressure task Care Plan Weekly blood pressure task No Dallas Martin CNP documented as of this encounter Procedures Procedure Name Priority Date/Time Associated Diagnosis Comments POCT GLUCOSE Routine 02/08/2025 12:10 PM EST Type 2 diabetes mellitus with other specified complication, without long-term current use of insulin (HCC) POCT GLYCATED HEMOGLOBIN, TOTAL Routine 02/08/2025 12:09 PM EST Type 2 diabetes mellitus with other specified complication, without long-term current use of insulin (HCC) CBC WITH AUTO DIFFERENTIAL Routine 02/08/2025 10:48 AM EST Type 2 diabetes mellitus with other specified complication, without long-term current use of insulin (HCC) documented in this encounter Results * POCT glucose manually resulted (02/08/2025 12:10 PM EST) Pathologist [facility] Glucose Blood, POC 101 60 - 200 mg/dL QC Media Lot # Comment:[id number] Lot# Expiration Date Comment:06/11/2025 Blood Capillary blood specimen / Unknown 02/08/2025 12:10 PM EST [facility] POINT OF CARE TEST ENTER/ EDIT ORDERABLES Final Result * POCT A1c (02/08/2025 12:09 PM EST) Pathologist [facility] Hemoglobin A1C 5.7 4.0 - 5.7 % QC Media Lot # Comment:[id number] Lot# Expiration Date Comment:02/08/2027 Blood 02/08/2025 12:0 9 PM EST [facility] POINT OF CARE TEST ENTER/ EDIT ORDERABLES Edited Result - Final * (ABNORMAL) CBC auto differential (02/08/2025 10:48 AM EST) Pathologist [facility] White Blood Count 11.9(H) 4.8 - 10.8 X10*3/uL [facility] Red Blood Count 4.93 4.20 - 5.50 X10*6/uL [facility] Hemoglobin 13.8 12.0 - 16.0 g/dl [facility] Hematocrit 42.2 37.0 - 47.0 % [facility] Mean Corpuscular Volume 85.6 80.0 - 98.0 fL [facility] Mean Corpuscular Hemoglobin 28.0 27.0 - 33.0 pg [facility] Mean Corpuscular HGB Conc 32.7 31.0 - 35.0 g/dl [facility] Red Cell Distribution Width 13.4 11.0 - 16.0 % [facility] Platelet Count 392 160 - 400 X10*3/uL [facility] Mean Platelet Volume 9.7 9.4 - 12.3 fL [facility] Neutrophils Percent Auto 66.8 45 - 73 % [facility] Imm Gran Pct Auto 0.3 0.0 - 0.4 % [facility] Lymphocytes Percent Auto 25.3 20 - 40 % [facility] Monocytes Percent Auto 6.1 2 - 11 % [facility] Eosinophils Percent Auto 0.8 0 - 4 % [facility] Basophils Percent Auto 0.7 0 - 2 % [facility] NRBC Pct Auto 0.0 0.0 - 0.2 /100WBC [facility] Neutrophils Absolute Auto 8.0 2.0 - 8.3 x10*3/uL [facility] Imm Gran Abs Auto 0.04(H) 0.00 - 0.03 X10*3/uL [facility] Lymphocytes Absolute Auto 3.0 1.2 - 4.9 X10*3/uL [facility] Monocytes Absolute Auto 0.7 0.1 - 1.2 X10*3/uL [facility] Eosinophils Absolute Auto 0.1 0.0 - 0.4 X10*3/uL [facility] Basophils Absolute Auto 0.1 0.0 - 0.2 X10*3/uL [facility] NRBC Abs Auto 0.000 0.0 - 0.012 X10*3/uL [facility] Blood Venous blood specimen / Unknown 02/08/2025 10:48 AM EST 02/08/2025 2:09 PM EST [facility] Laya l Result [facility] [address] [place] [address] [phone] documented in this encounter Visit Diagnoses Diagnosis Type 2 diabetes mellitus with other specified complication, without long-term current use of insulin (HCC)- Primary Neuropathy Mononeuritis of unspecified site Gastroesophageal reflux disease, unspecified whether esophagitis present Encounter to establish care Encounter for immunization Genitourinary syndrome of menopause documented in this encounter Additional Health Concerns Active Problems Noted Date Diagnosed Date Help patients manage their type 2 diabetes 02/08 Patient has chronic kidney disease 02/08/2025 Weekly blood pressure task 02/08/2025 documented as of this encounter Care Teams Cryptography Teacher Relationship Specialty Start Date End Date Dallas Martin CNP [address] [place] [address] PCP - General Family Medicine 02/08/25 documented as of this encounter
[2025-02-08 14:14] LABS: MANUAL DIFF FLAG NO
[2025-02-08 14:23] LABS: Hematocrit 42.2 % (37.0-47.0); Hemoglobin 13.8 g/dl (12.0-16.0); Imm Gran Abs Auto 0.04 X10*3/uL (0.00-0.03); Imm Gran Pct Auto 0.3 % (0.0-0.4); Lymphocytes Absolute Auto 3.0 X10*3/uL (1.2-4.9); Mean Corpuscular HGB Conc 32.7 g/dl (31.0-35.0); Mean Corpuscular Hemoglobin 28.0 pg (27.0-33.0); Mean Corpuscular Volume 85.6 fL (80.0-98.0); NRBC Abs Auto 0.000 X10*3/uL (0.0-0.012); NRBC Pct Auto 0.0 /100WBC (0.0-0.2); Platelet Count 392 X10*3/uL (160-400); Red Blood Count 4.93 X10*6/uL (4.20-5.50); White Blood Count 11.9 X10*3/uL (4.8-10.8)
--- OUTSIDE RECORDS SUMMARY | 2025-02-08 16:36 | XMS_ITS | Clinical Summary ---
Author Organization [employer] Address [address] [facility] [address] [place] [address] Care Team Providers Care Roller Operator Name Role Phone Dallas Martin ROSEMARY Primary Care Provider +1 [phone] Allergies No known active allergies Medications PEG 3350 (Glycolax, Miralax) 2 gram packet Take 17 g by mouth. 01/23/202025 Active Na Sulfate-K Sulfate-Mg Sulf (Suprep Bowel Prep Kit) 17.5-3.13-1.6 GM/177ML solution See Instructions, see colonoscopy instructions, # 1 kit, 0 Refills, Maintenance, 01/22/25 5:03:00 PM EST, [id number], Partial fill upon patient request if the prescription is for a schedule II opioid drug., see colonoscopy instructions, 160, cm, 01/22/25 16:19:00 EST, Height, 57.5, kg, 01/19/25 15:50:00 EST, Dry Weight 01/23/20 Active pantoprazole (ProtoNix) 40 MG EC tablet Take 40 mg by mouth. 01/23/20 Active psyllium (Metamucil) 58.6 % packet Take 3.4 g by mouth. 01/23/20 25 2025 Active glipiZIDE (Glucotrol) 5 MG tabletIndicati ons:Type 2 diabetes mellitus with other specified complication, without long-term current use of insulin ([facility]) Take 1 tablet (5 mg) by mouth before breakfast and before evening meal. 60 tablet 11 02/09/20 Active lisinopril 2.5 MG tabletIndicati ons:Type 2 diabetes mellitus with other specified complication, without long-term current use of insulin ([facility]) Take 1 tablet (2.5 mg) by mouth Once per day. 30 tablet 02/09/20 25 2025 Active gabapentin (Neurontin) 400 MG capsuleIndicat ions:Neuropath y Take 1 capsule (400 mg) by mouth 3 times daily. 90 capsule 02/09/20 25 2025 Active atorvastatin (Lipitor) 10 MG tabletIndicati ons:Type 2 diabetes mellitus with other specified complication, without long-term current use of insulin (HCC) Take 1 tablet (10 mg) by mouth Once per day. 30 tablet 02/09/20 25 2025 Active omega-3 acid ethyl esters (Lovaza) 1 g capsuleIndicat ions:Type 2 diabetes mellitus with other specified complication, without long-term current use of insulin (HCC) Take 1 capsule (1 g) by mouth 2 times daily. 60 capsule 02/09/20 25 2025 Active famotidine (Pepcid) 20 MG tabletIndicati ons:Gastroesop hageal reflux disease, unspecified whether esophagitis present Take 1 tablet (20 mg) by mouth 2 times daily. 60 tablet 02/09/20 25 2025 Active Probiotic, Lactobacillus, capsuleIndicat ions:Gastroeso phageal reflux disease, unspecified whether esophagitis present Take 1 capsule by mouth Once per day. 30 capsule 02/09/20 25 2025 Active FREESTYLE LITE test stripIndicatio ns:Type 2 diabetes mellitus with other specified complication, without long-term current use of insulin ([facility]) Use to test blood sugar 3 times daily 100 each 02/09/20 25 2025 Active Lancets miscIndication s:Type 2 diabetes mellitus with other specified complication, without long-term current use of insulin ([facility]) Use to test blood sugar 3 times daily 100 each 02/09/20 Active Alcohol Swabs 70 % padsIndication s:Type 2 diabetes mellitus with other specified complication, without long-term current use of insulin ([facility]) Use to test blood sugar 3 times daily 100 each 02/09/20 Active Blood Glucose Monitoring Suppl (FreeStyle Crawford Lite) w/Device kitIndications :Type 2 diabetes mellitus with other specified complication, without long-term current use of insulin (HCC) Use to test blood sugar 3 times daily 1 kit 02/09/20 Active Estradiol (Estrace) 0.01 % creamIndicatio ns:Genitourina ry syndrome of menopause Insert 0.5 g into the vagina every other day. 42.5 g 3 02/09/20 25 2025 Active glipiZIDE (Glucotrol) 5 MG tablet Take 5 mg by mouth. 01/30/20 25 2024 Discontinued(R eorder (will not trigger notification to Pharmacy)) Encounters Date Type Department Care Team Description 02/08/2025 10:45 AM EST Office Visit [facility] [address] [place] [address] Dallas Martin CNP Type 2 diabetes mellitus with other specified complication, without long-term current use of insulin (HCC) (Primary Dx); Neuropathy; Gastroesophageal reflux disease, unspecified whether esophagitis present; Encounter to establish care; Encounter for immunization; Genitourinary syndrome of menopause 02/08/2025 Telephone [facility] [address] [place] [address] Ellen Barber RN 02/08/2025 Travel 02/08/2025 Telephone [facility] [address] [place] [address] Josefina Shawna NM chart prep 02/06/2025 Population Health Risk Score [facility] () Department [address] [place] [id number] Provider, Population Health Generic from Last 3 Months Immunizations Immunization Administration Dates Next Due HepB-CpG 02/08/2025 Influenza, seasonal, injectable, preservative fr ee 02/08/2025 Tdap 02/08/2025 Social History Tobacco Use Types Packs/Day Years Used Date Smoking Tobacco: Never Smokeless Tobacco: Never Tobacco Cessation:Counseling Given: Not Answered Comments No Sex and Gender Information Value Date Recorded Sex Assigned at Female 02/06/2025 10:49 AM EST Legal Sex Female 10:32 AM EST Gender Identity Female 02/06/2025 10:49 AM EST Sexual Orientation Straight 02/06/2025 10 :49 AM EST Last Filed Vital Signs Vital Sign Reading [...] Mass Index 22.85 02/08/2025 10:46 AM EST Plan of Treatment Health Maintenance Due Date Last Done Comments CT Colonography 1976 Colonoscopy 1976 Colorectal Cancer Screening 1976 Depression Screening 1976 FIT DNA/Cologuard 1976 FIT 1976 FOBT 1976 HIV Screening 1976 Lipid Panel 1976 SDOH Screening 1976 Sigmoidoscopy 1976 Disability Screening 1976 Diabetes: Foot Exam 1986 Eye Exam 1986 Alcohol/Substance Use Screening 1988 Family Planning (PISQ) 11/21/1991 Hepatitis C Screening 1994 Diabetes: Urine Protein Screening 11/21/1995 Pneumococcal Vaccine: Pediat rics (0 to 5 Years) and At-Risk Patients (6 to 49) Years (1 of 2 - PCV) 11/21/1995 Mammogram 2016 Hepatitis B Vaccines (2 of 2 - CpG 2-dose series) 03/08/2025 02/08/2025 Diabetes: Hemoglobin A1C 08/09/2025 02/08/2025 COVID-19 Vaccine (1 - 2024-2 6 season) 2026 Postponed from 11/05 (Patient Refused) Tobacco Screening 02/08/2026 02/08/2025 Zoster Vaccines (1 of 2) 2026 DTaP/Tdap/Td Vaccines (2 - T d or Tdap) 02/08/2035 02/08/2025 RSV Patients and Pa tients Aged 60 years or older (1 - 1-dose 75+ series) 11/21/2051 Influenza Vaccine Completed 02/08/2025 HIB Vaccines Aged Out No longer eligi ble based on patient's age to complete this topic HPV Vaccines Aged Out No longer eligi ble based on patient's age to complete this topic Hepatitis A Vaccines Aged Out No long er eligible based on patient's age to complete this topic IPV Vaccines Aged Out No longer eligi ble based on patient's age to complete this topic Meningococcal B Vaccine Aged Out No l onger eligible based on patient's age to complete this topic Meningococcal Vaccine Aged Out No [place] eligible based on patient's age to complete this topic RSV under 20 months Aged Out No longe r eligible based on patient's age to complete this topic Rotavirus Vaccines Aged Out No longer eligible based on patient's age to complete this topic Goals Goal Patient Goal Type Associated Problems Recent Progress Patient-Stated? Author Help patients manage their type 2 diabetes Care Plan Help patients manage their type 2 diabetes No Dallas Martin CNP Patient has chronic kidney disease Care Plan Patient has chronic kidney disease No Dallas Martin CNP Weekly blood pressure task Care Plan Weekly blood pressure task No Dallas Martin CNP Procedures Procedure Name Priority Date/Time Associated Diagnosis [...] without long-term current use of insulin (HCC) from Last 3 Months Results * POCT glucose manually resulted (02/08/2025 12:10 PM EST) Pathologist [facility] Glucose Blood, POC 101 60 - 200 mg/dL QC Media Lot # Comment:[id number] Lot# Expiration Date Comment:06/11/2025 Blood Capillary blood specimen / Unknown 02/08/2025 12:10 PM EST [facility] POINT OF CARE TEST ENTER/ EDIT ORDERABLES Final Result * POCT A1c (02/08/2025 12:09 PM EST) Pathologist [facility] Hemoglobin A1C 5.7 4.0 - 5.7 % QC Media Lot # Comment:[id number] Lot# Expiration Date Comment:02/08/2027 Blood 02/08/2025 12:0 9 PM EST [facility] POINT OF CARE TEST ENTER/ EDIT ORDERABLES Edited Result - Final * (ABNORMAL) CBC auto differential (02/08/2025 10:48 AM EST) [facility] White Blood Count 11.9(H) 4.8 - 10.8 X10*3/uL [facility] Red Blood Count 4.93 4.20 - 5.50 X10*6/uL [facility] Hemoglobin 13.8 12.0 - 16.0 g/dl [facility] Hematocrit 42.2 37.0 - 47.0 % [facility] Mean Corpuscular Volume 85.6 80.0 - 98.0 fL [facility] Mean Corpuscular Hemoglobin 28.0 27.0 - 33.0 pg [facility] Mean Corpuscular HGB Conc 32.7 31.0 - 35.0 g/dl [facility] Red Cell Distribution Width 13.4 11.0 - 16.0 % [facility] Platelet Count 392 160 - 400 X10*3/uL [facility] Mean Platelet Volume 9.7 9.4 - 12.3 fL [facility] Neutrophils Percent Auto 66.8 45 - 73 % [facility] Imm Gran Pct Auto 0.3 0.0 - 0.4 % [facility] Lymphocytes Percent Auto 25.3 20 - 40 % [facility] Monocytes Percent Auto 6.1 2 - 11 % [facility] Eosinophils Percent Auto 0.8 0 - 4 % [facility] Basophils Percent Auto 0.7 0 - 2 % [facility] NRBC Pct Auto 0.0 0.0 - 0.2 /100WBC [facility] Neutrophils Absolute Auto 8.0 2.0 - 8.3 x10*3/uL [facility] Imm Gran Abs Auto 0.04(H) 0.00 - 0.03 X10*3/uL [facility] Lymphocytes Absolute Auto 3.0 1.2 - 4.9 X10*3/uL [facility] Monocytes Absolute Auto 0.7 0.1 - 1.2 X10*3/uL [facility] Eosinophils Absolute Auto 0.1 0.0 - 0.4 X10*3/uL [facility] Basophils Absolute Auto 0.1 0.0 - 0.2 X10*3/uL [facility] NRBC Abs Auto 0.000 0.0 - 0.012 X10*3/uL [facility] Blood Venous blood specimen / Unknown 02/08/2025 10:48 AM EST 02/08/2025 2:09 PM EST [facility] LAB BLOOD ORDERABLES Laya miller Result Performing Organization Address City/State/[facility] Co de Phone Number [facility] [address] [place] [phone] from Last 3 Months Additional Health Concerns Active Problems Noted Date Diagnosed Date Help patients manage their type 2 diabetes 02/08 Patient has chronic kidney disease 02/08/2025 Weekly blood pressure task 02/08/2025 Insurance [facility] C3 Care Teams Roller Operator Relationship Specialty Start Date End Date Dallas Martin CNP [address] [place] [id number] PCP - General Family Medicine 02/08/25
--- OUTSIDE RECORDS SUMMARY | 2025-02-08 16:36 | XMS_ITS | Encounter Summary ---
Author Organization [employer] Address [address] [facility] [address] [place] [address] Care Team Providers Care Professor Of Forestry Name Role Phone Dallas Martin CNP Primary Care Provider [phone] [phone] Encounter Details Date Type Department Care Team (Late st Contact Info) Description 02/08/2025 Telephone [facility] [address] [place], [place] [phone] Ellen Barber RN [address] [place] [address] Social History Tobacco Use Types Packs/Day Years Used Date Smoking Tobacco: Never Smokeless Tobacco: Never Comments No Sex and Gender Information Value Date Recorded Sex Assigned at Female 02/06/2025 10:49 AM EST Legal Sex Female 10:32 AM EST Gender Identity Female 02/06/2025 10:49 AM EST Sexual Orientation Straight 02/06/2025 10 :49 AM EST documented as of this encounter Miscellaneous Notes * Telephone Encounter - Dallas Martin CNP - 02/08/2025 12:29 PM EST Supplies sent to patient's pharmacy, thank you! * Telephone Encounter - Ellen Barber RN - 02/08/2025 12:08 PM EST Pt presents to the front end technician, after ONLINE MARKETING COORDINATOR appointment today. Pt reports forgot to ask the provider for a glucose monitor, lancets and strips. Will task to PCP. Pt aware. documented in this encounter Plan of Treatment [...] Martin CNP documented as of this encounter Visit Diagnoses Not on filedocumented in this encounter Additional Health Concerns Active Problems Noted Date Diagnosed Date Help patients manage their type 2 diabetes 02/08 Patient has chronic kidney disease 02/08/2025 Weekly blood pressure task 02/08/2025 documented as of this encounter Care Teams Professor Of Forestry Relationship Specialty Start Date End Date Dallas Martin CNP [address] [place] [id number] PCP - General Family Medicine 02/08/25 documented as of this encounter
--- OUTSIDE RECORDS SUMMARY | 2025-02-08 16:36 | XMS_ITS | Encounter Summary ---
Author Organization [employer] Address [address] [place] [address] [address] [place] [address] Care Team Providers Care Executive Secretary Social Welfare Name Role Phone Dallas Martin CNP Primary Care Provider +1 [phone] Encounter Details Date Type Department Care Team (Latest Contact Info) Description 02/08/2025 Travel Social History Tobacco Use Types Packs/Day Years Used Date Smoking Tobacco: Never Smokeless Tobacco: Never Comments No Sex and Gender Information Value Date Recorded Sex Assigned at Female 02/06/2025 10:49 AM EST Legal Sex Female 10:32 AM EST Gender Identity Female 02/06/2025 10:49 AM EST Sexual Orientation Straight 02/06/2025 10 :49 AM EST documented as of this encounter Plan of Treatment Not on [...] documented as of this encounter Care Teams Executive Secretary Social Welfare Relationship Specialty Start Date End Date Dallas Martin CNP [address] [place] [address] PCP - General Family Medicine 02/08/25 documented as of this encounter
--- OUTSIDE RECORDS SUMMARY | 2025-02-08 16:37 | XMS_ITS | Encounter Summary ---
Author Organization [employer] Address [address] [facility] 7[address] [place] [address] Care Team Providers Care Internal Medicine Physician Assistant Name Role Phone Dallas Martin ROSEMARY Primary Care Provider +1 [phone] Reason for Visit * Reason Onset Date Comments chart prep 02/08/2025 Encounter Details Date Type Department Care Team (Late st Contact Info) Description 02/08/2025 Telephone [facility] [address] [place] [address] Shawna Rocha MA chart prep Social History Tobacco Use Types Packs/Day Years [...] encounter Miscellaneous Notes * Telephone Encounter - Shawna Rocha MA - 02/08/2025 9:07 AM EST Chart Prep Labs: not applicable Images: not applicable Referrals: not applicable Vaccines due: Covid, Flu, Tdap, Hep B, Td, and DTAP Screenings: colonoscopy, mammogram, pap smear, STI screening, and LMP Overdue care gaps: SBIRT, SDOH, PHQ-9, MARY-7, Oral health screening, Disability screen, and Tobacco documented in this encounter Plan of Treatment [...] documented as of this encounter Care Teams Internal Medicine Physician Assistant Relationship Specialty Start Date End Date Dallas Martin CNP [address] [place] [phone] PCP - General Family Medicine 02/08/25 documented as of this encounter
--- OUTSIDE RECORDS SUMMARY | 2025-02-08 16:37 | XMS_ITS | Encounter Summary ---
Author Organization [employer] Address [address] [facility] 7[address] [place] [address] Care Team Providers Care Brush Finisher Name Role Phone Unavailable Primary Care Provider Unavailabl e Encounter Details Date Type Department Care Team (Late st Contact Info) Description 02/06/2025 Population Health Risk Score [facility] Care [facility] (C3) Department [address] [phone] Provider, Population Health Generic Social History Tobacco Use Types Packs/Day Years Used Date Smoking Tobacco: Never Assessed Comments Unknown Sex and Gender Information Value Date Recorded Sex Assigned at Female 02/06/2025 10:49 AM EST Legal Sex Female 10:32 AM EST Gender Identity Female 02/06/2025 10:49 AM EST Sexual Orientation Straight 02/06/2025 10 :49 AM EST documented as of this encounter Plan of Treatment Not on file documented as of this encounter Visit Diagnoses Not on filedocumented in this encounter
[2025-02-08 17:20] LABS: Microalbum/Creatinine Ratio Ur 15.6 ug/mg cr (<30)
[2025-02-08 17:25] LABS: Alanine Aminotransferase 27 U/L (0-31); Albumin Level 4.8 g/dL (3.5-5.0); Alkaline Phosphatase 50 U/L (39-117); Anion Gap 13 (12-20); Aspartate Amino Transferase 21 U/L (5-31); Blood Urea Nitrogen 14 mg/dL (9-16); Calcium 10.0 mg/dL (8.4-10.2); Carbon Dioxide 28 mmol/L (22-29); Chloride 106 mmol/L (96-108); Cholesterol 239 mg/dL (<200); Estimated Glomerular Filt Rate > 60; HDL Cholesterol 40 mg/dL (>40); Potassium 4.4 mmol/L (3.3-5.1); Sodium 143 mmol/L (135-145); Total Protein 8.5 g/dL (6.5-8.0); Triglycerides 665 mg/dL (<150)
[2025-02-09 08:20] LABS: HIV Num 1 0.07 S/CO (0.00-0.99); ~HepC Num1 0.10 S/CO (0.00-0.79); ~Hepatitis C Antibody Nonreactive (Nonreactive)
== END 2025-02-08 12:47 | disposition home or self-care (01) ==
LOC: HO.CHCLDS 12:46
DX: Z11.4 Encounter for screening for human immunodeficiency virus [HIV] (principal); E11.69 Type 2 diabetes mellitus with other specified complication; Z76.89 Persons encountering health services in other specified circumstances
CPT/HCPCS: 36415; 80053; 80061; 82043; 82570; 83036; 85025; 86803; 87389

== ENCOUNTER 2025-02-21 08:56 | Outpatient (REF) | payer MEDICAID, SELFPAY ==
--- OUTSIDE RECORDS SUMMARY | 2025-02-08 10:45 | XMS_ITS | Encounter Summary ---
Author Organization [employer] Address [address] 7 [place] [address] Care Team Providers Care Professor Of Medicine Name Role Phone Dallas Martin CNP Primary Care Provider [phone] Encounter Details Date Type Department Care Team ([facility] st Contact Info) Description 02/08/2025 10:45 AM EST Office Visit [facility] [address], [place] [phone] Dallas Martin CNP [address], [place] [phone] Type 2 diabetes mellitus with other specified complication, without long-term current use of insulin (HCC) (Primary Dx); Neuropathy; Gastroesophageal reflux disease, unspecified whether esophagitis present; Encounter to establish care; Encounter for immunization; Genitourinary syndrome of menopause Social History Tobacco Use Types Packs/Day Years Used Date Smoking Tobacco: Never Smokeless Tobacco: Never Tobacco Cessation:Counseling Given: Not Answered Depression Answer Date Recorded Patient Health Questionnaire-9 Score 8 02/20/2025 Patient Health Questionnaire-9 Score 8 02/20/2025 Last PHQ-9: Questionnaire Data Not on file 1 04/23/2024 Housing Stability Answer Date Recorded What is your housing situation today? I have housing today, but I am worried about losing housing in the future 02/20/[address] you li ve. Do you have problems with any of the following? None of the above 02/20/2025 Food Insecurity Answer Date Recorded Within the past 12 months, y ou worried that your food would run out before you got money to buy more: Often true 02/20/2025 Within the past 12 months,th e food you bought just didn't last and you didn't have enough money to get more: Often true Transportation Answer Date Recorded In the past 12 months, has l ack of transportation kept you from medical appts, meetings, work or from getting things needed for daily living? No 02/20/2025 Utilities Answer Date Recorded In the past 12 months, has t he electric, gas, oil or water company threatened to shut off services in your home? No 02/20/2025 Depression Answer Date Recorded Patient Health Questionnaire-2 Score 1 02/20/2025 Internet Access Answer Date Recorded Internet Access Q1 Yes 02/20/2025 Internet Access Q2 Not on file 02/20/2025 Comments No Sex and Gender Information Value [...] 10:46 AM EST documented in this encounter Functional Status * Over the past 2 weeks, how often have you been bothered by any of the following problems? Question Answer Date of Assessment Author Patient Health Questionnaire -2 Score 1 02/20/2025 9:36 AM EST Laura Rocha MA * Little interest or pleasure in doing things Answer Date of Assessment Author Several days 02/20/2025 9:36 AM EST [facility] Shawna woods [place] * Feeling down, depressed, or hopeless Answer Date of Assessment Author Not at all 02/20/2025 9:36 AM EST Shawna Ray MA * Trouble falling or staying asleep, or sleeping too much Answer Date of Assessment Author More than half the days 02/20/2025 9:36 AM EST Shawna Madison MA * Feeling tired or having little energy Answer Date of Assessment Author More than half the days 02/20/2025 9:36 AM Shawna Jaimes MA * Poor appetite or overeating Answer Date of Assessment Author More than half the days 02/20/2025 9:36 AM EST Shawna Madison MA * Feeling bad about yourself - or that you are a failure or have let yourself or your family down Answer Date of Assessment Author Not at all 02/20/2025 9:36 AM EST [facility] Shawna woods [place] * Trouble concentrating on things, such as reading the newspaper or watching television Answer Date of Assessment Author Several days 02/20/2025 9:36 AM EST [facility] Shawna woods [place] * Moving or speaking so slowly that other people could have noticed? Or the opposite - being so fidgety or restless that you have been moving around a lot more than usual. Answer Date of Assessment Author Not at all 02/20/2025 9:36 AM EST [facility] Shawna woods [place] * Thoughts that you would be better off or hurting yourself in some way Answer Date of Assessment Author Not at all 02/20/2025 9:36 AM ZORA [facility] Shawna woods [place] * Patient Health Questionnaire-9 Score Answer Date of Assessment Author 8 02/20/2025 9:36 AM EST [facility] Shawna woods [place] * Over the last 2 weeks, how often have you been bothered by any of the following problems? Question Answer Date of Assessment Author Feeling nervous, anxious, or on edge 1 02/20/2025 9:37 AM Laura Nascimento MA Not being able to stop or control worrying 2 02/20/2025 9:37 AM Laura Nascimento MA Worrying too much about different things 1 02/20/2025 9:37 AM Laura Nascimento MA Trouble relaxing 1 02/20/2025 9:37 AM EST Shawna Madison MA Being so restless that it is hard to sit still 1 02/20/2025 9:37 AM Laura Nascimento MA Becoming easily annoyed or irritable 0 02/20/2025 9:37 AM Laura Nascimento MA Feeling afraid as if somethi ng awful might happen 3 02/20/2025 9:37 AM Laura Nascimento MA MARY-7 Total Score 9 02/20/2025 9:37 AM Shawna Nascimento MA * How difficult have these problems made it for you to do your work, take care of things at home, or get along with other people? Answer Date of Assessment Author Somewhat difficult 02/20/2025 9:36 AM Shawna Godwin MA documented as of this encounter Progress Notes * Dallas Martin CNP - 02/08/2025 10:45 AM EST Subjective: Blaire Patino is a 49 y.o. female with PMH of T2DM, Venous Insufficiency, neuropathy, gastritis, pancreatitis, hiatal hernia who presents to the office for a new patient visit. Previous PCP unknown. Interim history: Recently relocated from [place] due to poor medical care in regards to her ongoing GI problems. Pt recently seen at [facility] ED for abdominal pain 01/19/25. CT scan showed mild-moderate stool retention otherwise no primary intrabdominal pathology. Labs unremarkeable.She was provided number for [facility] and prescribed zofran and enema. She also has MoM, Miralax and colace. Recently had colonoscopy at [facility] one small 5mm polyp found and [...] complication, without long-term current use of insulin ([facility]) Lab Results Component Value Date HGBA1C 5.7 [...] times daily Blood Glucose Monitoring Suppl (FreeStyle Henryetta Lite) w/Device kit; Use to test blood [...] but declines COVID Orders: FLU VACCINE TRIVALENT [id number] (Fluarix) 19 yrs + TDAP VACCINE 7 [...] 0 Refills, Maintenance, 01/22/25 5:03:00 PM EST, [facility]/pharmacy #[id number], Partial fill upon patient request if the [...] tablet 11 Blood Glucose Monitoring Suppl (FreeStyle Henryetta Lite) w/Device kit Use to test blood [...] documented in this encounter Plan of Treatment Not on file documented as of this encounter Goals Goal Patient Goal Type Associated Problems Recent Progress Patient-Stated? Author Help patients manage their type 2 diabetes Care Plan Help patients manage their type 2 diabetes Dallas Reed CNP Patient has chronic kidney disease Care Plan Patient has chronic kidney disease Dallas Reed CNP Weekly blood pressure task Care Plan Weekly blood pressure task Dallas Reed CNP documented as of this encounter Procedures Procedure Name Priority Date/Time Associated Diagnosis Comments ALBUMIN, RANDOM URINE W/CREATININE Routine 02/08/2025 12:50 PM EST Type 2 diabetes mellitus with other specified complication, without long-term current use of insulin (HCC) HEMOGLOBIN A1C Routine 02/08/2025 12:48 PM EST Type 2 diabetes mellitus with other specified complication, without long-term current use of insulin (HCC) LIPID PANEL, STANDARD Routine 02/08/2025 12:48 PM EST Type 2 diabetes mellitus with other specified complication, without long-term current use of insulin (HCC) COMPREHENSIVE METABOLIC PANEL Routine 02/08/2025 12:48 PM EST Type 2 diabetes mellitus with other specified complication, without long-term current use of insulin (HCC) HEPATITIS C AB W/REFL TO HCV RNA, QN, PCR Routine 02/08/2025 12:45 PM EST Encounter to establish care HIV 1/2 ANTIGEN/ANTIBODY, FOURTH GENERATION W/RFL Routine 02/08/2025 12:45 PM EST Encounter to establish care POCT GLUCOSE Routine 02/08/2025 12:10 PM EST [...] complication, without long-term current use of insulin ([facility]) documented in this encounter Results * Albumin, Random Urine W/Creatinine (02/08/2025 12:50 PM EST) Creatinine, Urine 83.29 mg/dL [facility] Microalbumin Urine 13.0 mg/L [facility] Microalbum Creatinine Ratio Ur 15.6 <30 ug/mg cr [facility] Comment:Albumin/Creatinine R atio Reference Ranges: Normal: < 30 ug/mg creatinine Microalbuminuria: 30 - 300 ug/mg creatinineClinical Albuminuria: > 300 ug/mg creatinine Urine (Urine, Random) 02/08/2025 12:50 PM EST 02/08/2025 2:09 PM EST [facility] URINE ORDERABLES Laya l Result [facility] [address] [place] [phone] * (ABNORMAL) Lipid Panel, Standard (02/08/2025 12:48 PM EST) Triglycerides 665(H) <150 mg/dL [facility] Comment:Desirable Triglyceri de: less than 150 mg/dLBorderline High Triglyceride 150-199 mg/dLHigh Triglyceride: 200-499 mg/dLVery High Triglyceride: greater than or equal to 5OO mg/dL Cholesterol 239(H) <200 mg/dL [facility] Comment:Desirable Cholestero l: less than 200 mg/dLBorderline High Cholesterol: 200-239 mg/dLHigh Cholesterol: greater than 239 mg/dL LDL Cholesterol Calculated TNP <100 mg/dL [facility] Comment:Unable to calculate the LDL. The formula of Friedwald,Herrera, and David is only valid if the triglycerides areless than 400 mg/dl. HDL Cholesterol 40(L) >40 mg/dL [facility] Comment:Desirable HDL: great er than 40 mg/dL Note: This HDL assay may give artificially low results in patients with liver disease. Blood Venous blood specimen / Unknown 02/08/2025 12:48 PM EST 02/08/2025 2:09 PM EST [facility] BLOOD ORDERABLES Laya l Result [facility] [address] [place] [phone] * (ABNORMAL) Comprehensive Metabolic Panel (02/08/2025 12:48 PM EST) Sodium 143 135 - 145 mmol/L [facility] Potassium 4.4 3.3 - 5.1 mmol/L [facility] Chloride 106 96 - 108 mmol/L [facility] Carbon Dioxide 28 22 - 29 mmol/L [facility] Anion Gap 13 12 - 20 [facility] Urea Nitrogen (BUN) 14 9 - 16 mg/dL [facility] Creatinine, Serum 0.59 0.5 - 1.4 mg/dL [facility] Estimated Glomerular Filt Rate >60 [facility] Comment:Chronic Kidney Disea se: Estimated GFR < 60 mL/min/1.04m7Myjeot Kidney Disease: Estimated GFR < 15 mL/min/1.73m2 Glucose 101 60 - 115 mg/dL [facility] Calcium 10.0 8.4 - 10.2 mg/dL [facility] Bilirubin, Total 0.4 0.0 - 1.0 mg/dL [facility] Aspartate Amino Transferase 21 5 - 31 U/L [facility] Alanine Aminotransferase 27 0 - 31 U/L [facility] Total Protein 8.5(H) 6.5 - 8.0 g/dL [facility] Albumin Level 4.8 3.5 - 5.0 g/dL [facility] Alkaline Phosphatase 50 39 - 117 U/L [facility] Blood Venous blood specimen / Unknown 02/08/2025 12:48 PM EST 02/08/2025 2:09 PM EST [facility] LAB BLOOD ORDERABLES Laya l Result Performing Organization Address [facility] de Phone Number [facility] [address] [place] [phone] * Hemoglobin A1c (02/08/2025 12:48 PM EST) Hemoglobin A1c 5.9 <6.0 % [facility] Comment:Hemoglobin A1C Refer ence Range Adults: 4.8 - 6.0 % Non diabetic: < 6.0 % Goal: < 7.0 %Additional Action Suggested: > 8.0 %Note: Hemoglobin A1c results are invalid for patients with abnormal amounts of HbF. Blood transfusions may impact the HbA1c concentration in the patient sample. Estimated Average Glucose 123 mg/dL [facility] Comment:eAG = Estimated ave rage glucose which is %A1C expressed asaverage glucose, using the formula of the B3L-YtjqwaqOxcdzph Glucose study (ADAG), Diabetes Care, Vol.31,#8,Oct. 2007 Blood Venous blood specimen / Unknown 02/08/2025 12:48 PM EST 02/08/2025 2:09 PM EST [facility] LAB BLOOD ORDERABLES Laya l Result Performing Organization Address [facility] Co de Phone Number [facility] [address] [place] [phone] * Hepatitis C Antibody with Reflex to HCV, RNA, Quantitative, Real-Time PCR (02/08/2025 12:45 PM EST) [facility] Hepatitis C Antibody Nonreactive Nonreactive [facility] Comment:Antibodies to HCV no t detected; does not exclude early acuteHCV infection. Blood Venous blood specimen / Unknown 02/08/2025 12:45 PM EST 02/08/2025 2:09 PM EST [facility] LAB BLOOD ORDERABLES Laya l Result Performing Organization Address City/[facility]/ZIP Co de Phone Number [facility] [address] [place] [address] [phone] * HIV-1/2 Antigen and Antibodies, Fourth Generation, with Reflexes (02/08/2025 12:45 PM EST) [facility] HIV AB/AG Nonreactive Nonreactive [facility] Comment:HIV-1 p24 Ag and/or HIV-1/HIV-2 Ab not detected.A test result that is nonreactive does not exclude thepossibility of exposure to or infection with HIV-1 and/orHIV-2. Nonreactive results in this assay for individualswith prior exposure to HIV-1 and/or HIV-2 may be due toantigen and antibody levels that are below the limit ofdetection of this assay.The [employer] HIV Ag/Ab Combo assay result andsupplemental assay results should be interpreted inconjunction with the patient's clinical presentation,history and other laboratory results. If the results areinconsistent with clinical evidence, additional testing issuggested to confirm the result. Blood Venous blood specimen / Unknown 02/08/2025 12:45 PM EST 02/08/2025 2:09 PM EST [facility] LAB BLOOD ORDERABLES Laya l Result Performing Organization Address City/[facility]/ZIP Co de Phone Number [facility] [address] [place] [address] [phone] * POCT glucose manually resulted (02/08/2025 12:10 PM EST) [facility] Glucose Blood, POC 101 60 - 200 mg/dL QC Media Lot # Comment:[id number] Lot# Expiration Date Comment:06/11/2025 Blood Capillary blood specimen / Unknown 02/08/2025 12:10 PM EST [facility] POINT OF CARE TEST ENTER/ EDIT ORDERABLES Final Result * POCT A1c (02/08/2025 12:09 PM EST) Pathologist [facility] Hemoglobin A1C 5.7 4.0 - 5.7 % QC Media Lot # Comment:[id number] Lot# Expiration Date Comment:02/08/2027 Blood 02/08/2025 12:0 9 PM EST [facility] POINT OF CARE TEST ENTER/ EDIT ORDERABLES Edited Result - Final * (ABNORMAL) CBC auto differential (02/08/2025 10:48 AM EST) [facility] White Blood Count 11.9(H) 4.8 - 10.8 X10*3/uL [facility] Red Blood Count 4.93 4.20 - 5.50 X10*6/uL [facility] Hemoglobin 13.8 12.0 - 16.0 g/dl [facility] Hematocrit 42.2 37.0 - 47.0 % [facility] Mean Corpuscular Volume 85.6 80.0 - 98.0 fL [facility] Mean Corpuscular Hemoglobin 28.0 27.0 - 33.0 pg [facility] Mean Corpuscular HGB Conc 32.7 31.0 - 35.0 g/dl [facility] Red Cell Distribution Width 13.4 11.0 - 16.0 % [facility] Platelet Count 392 160 - 400 X10*3/uL [facility] Mean Platelet Volume 9.7 9.4 - 12.3 fL [facility] Neutrophils Percent Auto 66.8 45 - 73 % [facility] Imm Gran Pct Auto 0.3 0.0 - 0.4 % [facility] Lymphocytes Percent Auto 25.3 20 - 40 % [facility] Monocytes Percent Auto 6.1 2 - 11 % [facility] Eosinophils Percent Auto 0.8 0 - 4 % [facility] Basophils Percent Auto 0.7 0 - 2 % [facility] NRBC Pct Auto 0.0 0.0 - 0.2 /100WBC [facility] Neutrophils Absolute Auto 8.0 2.0 - 8.3 x10*3/uL [facility] Imm Gran Abs Auto 0.04(H) 0.00 - 0.03 X10*3/uL [facility] Lymphocytes Absolute Auto 3.0 1.2 - 4.9 X10*3/uL [facility] Monocytes Absolute Auto 0.7 0.1 - 1.2 X10*3/uL [facility] Eosinophils Absolute Auto 0.1 0.0 - 0.4 X10*3/uL [facility] Basophils Absolute Auto 0.1 0.0 - 0.2 X10*3/uL [facility] NRBC Abs Auto 0.000 0.0 - 0.012 X10*3/uL [facility] Blood Venous blood specimen / Unknown 02/08/2025 10:48 AM EST 02/08/2025 2:09 PM EST [facility] LAB BLOOD ORDERABLES Laya l Result Performing Organization Address City/State/[facility] Co de Phone Number [facility] [address] [place] [phone] documented in this encounter Visit Diagnoses [...] disease 02/08/2025 Weekly blood pressure task 02/08/2025 Assessment Noted Time PHQ-9 Depression Total Score: 8 02/21/20 9:36 AM EST documented as of this encounter Care Teams Professor Of Medicine Relationship Specialty Start Date End Date Dallas Martin CNP [address] [place] [address] [place] [id number] PCP - General Family Medicine 02/08/25 documented as of this encounter
--- OUTSIDE RECORDS SUMMARY | 2025-02-20 15:20 | XMS_ITS | Encounter Summary ---
Author Organization [employer] Address [address] [facility] [address] [place] [address] Care Team Providers Care Wood Carving Lathe Operator Name Role Phone Dallas Martin CNP Primary Care Provider +1 [phone] Encounter Details Date Type Department Care Team (Late st Contact Info) Description 02/20/2025 3:20 PM EST Office Visit [facility] [address] [place] [address] Constipation, unspecified constipation type (Primary Dx); Right upper quadrant pain; Dysuria Social History Tobacco Use Types Packs/Day Years Used Date Smoking Tobacco: Never Smokeless Tobacco: Never Depression Answer Date Recorded Patient Health Questionnaire-9 [...] Sign Reading Time Taken Comments Blood Pressure 104/68 02/20/2025 3:50 PM EST Pulse 80 02/20/2025 3:50 PM EST Temperature 36.9 C (98.4 F) 02/20/2025 3:50 PM EST Respiratory Rate 20 02/20/2025 3:50 PM EST Oxygen Saturation 98% 02/20/2025 3:50 PM EST Inhaled Oxygen Concentration - - Weight 58.8 kg (129 lb 9.6 oz) 02/20/2025 3:50 P M EST Height 160 cm (5' 3 ) 02/20/2025 3:50 PM EST Body Mass Index 22.96 02/20/2025 3:50 PM EST documented in this encounter Functional Status [...] EST [facility]iam[facility] Shawna woods [place] * Trouble falling or staying asleep, [...] 02/20/2025 9:36 AM Shawna Jaimes MA * Feeling bad about yourself - or that you are a failure or have let yourself or your family down Answer Date of Assessment Author Not at all 02/20/2025 9:36 AM ZORA P[facility] Shawna woods [place] * Trouble concentrating on things, such as reading the newspaper or watching television Answer Date of Assessment Author Several days 02/20/2025 9:36 AM [facility] Shawna woods [place] * Moving or speaking so slowly that other people could have noticed? Or the opposite - being so fidgety or restless that you have been moving around a lot more than usual. Answer Date of Assessment Author Not at all 02/20/2025 9:36 AM ZORA P[facility] Shawna woods [place] * Thoughts that you would be better off or hurting yourself in some way Answer Date of Assessment Author Not at all 02/20/2025 9:36 AM [facility] Shawna woods MA * Patient Health Questionnaire-9 Score Answer Date of Assessment Author 8 02/20/2025 9:36 AM ZORA [facility] Shawna woods MA * Over the [...] MA Trouble relaxing 1 02/20/2025 9:37 AM Shawna Jaimes MA Being so restless that it is [...] Godwin [place] documented as of this encounter Plan of Treatment Scheduled Orders Name Type Priority Associated Diagnoses Orde r Schedule Lipid Panel, Standard Lab Routine Right upper quadrant pain Expected: 02/20/2025 (Approximate), Expires: 02/20/2026 Lipase Lab Routine Right upper quadrant pain Expected: 02/20/2025, Expires: 02/20/2026 Amylase Lab Routine Right upper quadrant pain Expected: 02/20/2025 (Approximate), Expires: 02/20/2026 Comprehensive Metabolic Panel Lab Routine Right upper quadrant pain Expected: 02/20/2025 (Approximate), Expires: 02/20/2026 CBC auto differential Lab Routine Right upper quadrant pain Expected: 02/20/2025 (Approximate), Expires: 02/20/2026 documented as of this encounter Goals Goal [...] Name Priority Date/Time Associated Diagnosis Comments POCT URINALYSIS DIPSTICK Routine 02/20/2025 5:24 PM EST Dysuria documented in this encounter Results * POCT urinalysis dipstick manually resulted (CPT 59165) (02/20/2025 5:24 PM EST) Color, UA Yellow Clarity, UA Clear Glucose, UA Negative Bilirubin, UA Negative Ketones, UA Negative Spec Grav, UA 1.025 Blood, UA Negative Negative, None Detected Comment:trace-intact pH, UA 7.0 Protein, UA Negative Urobilinogen, UA 0.2 Leukocytes, UA Negative Negative, Rare, Trace, 1+ (17), 2+ (35), 3+ (70), Trace (15) Nitrite, UA Negative Negative, None Detected Appearance, UA clear QC Media Lot # [id number] Lot# Expiration Date ,026 Urine (Urine, Random) 02/20/2025 5:24 PM EST [facility] Leana INTEGRATED PROGRAM TEACHER POINT OF CARE TEST ENTER/EDIT O RDERABLES Final Result documented in this encounter Visit Diagnoses Diagnosis Constipation, unspecified constipation type- Primary Right upper quadrant pain Abdominal pain, right upper quadrant Dysuria documented in this encounter Additional Health Concerns Active Problems Noted Date Diagnosed Date Help patients manage their type 2 diabetes 02/08 Patient has chronic kidney disease 02/08/2025 Weekly blood pressure task 02/08/2025 Assessment Noted Time PHQ-9 Depression Total Score: 8 02/21/20 9:36 AM EST documented as of this encounter Care Teams Wood Carving Lathe Operator Relationship Specialty Start Date End Date Dallas Martin CNP [address] [place] [address] PCP - General Family Medicine 02/08/25 documented as of this encounter
--- OUTSIDE RECORDS SUMMARY | 2025-02-21 09:45 | XMS_ITS | Encounter Summary ---
Author Organization [employer] Address [address] [facility] 7 [place] [address] Care Team Providers Care Automobile Salesman Name Role Phone Dallas Martin CNP Primary Care Provider [phone] Reason for Visit * Reason Onset Date Comments Appointment Request 02/20/2025 Encounter Details Date Type Department Care Team ([facility] st Contact Info) Description 02/20/2025 Telephone [facility] [address] [place], [place] [phone] Dallas Martin CNP [address] [place] [address] Appointment Request Social History Tobacco Use Types Packs/Day Years [...] AM EST documented as of this encounter Functional Status * Over the past 2 weeks, how often have you been bothered by any of the following problems? Question Answer Date of Assessment Author Patient Health Questionnaire -2 Score 1 02/20/2025 9:36 AM EST Laura Rocha MA * Little interest or pleasure in doing things Answer Date of Assessment Author Several days 02/20/2025 9:36 AM EST Pineda-Co Shawna woods [place] * Feeling down, depressed, or hopeless Answer Date of Assessment Author Not at all 02/20/2025 9:36 AM EST P[facility] Shawna woods [place] * Trouble falling or staying asleep, or sleeping too much Answer Date of Assessment Author More than half the days 02/20/2025 9:36 AM EST Shawna Madison MA * Feeling tired or having little energy Answer Date of Assessment Author More than half the days 02/20/2025 9:36 AM EST Shawna Madison MA * Poor appetite or overeating Answer Date of Assessment Author More than half the days 02/20/2025 9:36 AM EST Shawna Madison MA * Feeling bad about yourself - or that you are a failure or have let yourself or your family down Answer Date of Assessment Author Not at all 02/20/2025 9:36 AM EST P[facility] Shawna woods MA * Trouble concentrating on things, such as reading the newspaper or watching television Answer Date of Assessment Author Several days 02/20/2025 9:36 AM EST [facility] Shawna woods MA * Moving or speaking so slowly that other people could have noticed? Or the opposite - being so fidgety or restless that you have been moving around a lot more than usual. Answer Date of Assessment Author Not at all 02/20/2025 9:36 AM EST Pined[facility] Shawna woods MA * Thoughts that you would be better off or hurting yourself in some way Answer Date of Assessment Author Not at all 02/20/2025 9:36 AM EST P[facility] Shawna woods MA * Patient Health [...] about different things 1 02/20/2025 9:37 AM EST Laura Rocha MA Trouble relaxing 1 02/20/2025 9:37 AM Shawna Jaimes MA Being so restless that it is hard to sit still 1 02/20/2025 9:37 AM Laura Nascimento MA Becoming easily annoyed or irritable 0 02/20/2025 9:37 AM EST Laura Rocha MA Feeling afraid as if somethi ng awful might happen 3 02/20/2025 9:37 AM EST Laura Rocha MA MARY-7 Total Score 9 02/20/2025 9:37 AM Shawna Nascimento MA * How difficult have these problems made it for you to do your work, take care of things at home, or get along with other people? Answer Date of Assessment Author Somewhat difficult 02/20/2025 9:36 AM Shawna Godwin MA documented as of this encounter Miscellaneous Notes * Telephone Encounter - Stephanie Strickland RN - 02/20/2025 11:19 AM EST Pt walked into office and was informed of canceled appointment. Offered to r/s to 02/27/25. Pt states will be on vacation and requesting to be seen. Advised of [facility] hours of operation today. Pt verbalized will go to [facility] to request to be seen. * Telephone Encounter - Stephanie Strickland RN - 02/20/2025 9:31 AM EST TC to pt with [facility] safe expert. No answer. VM left informing pt that provider out of office and appointment canceled and advised to contact office to reschedule documented in this encounter Plan of Treatment [...] documented as of this encounter Care Teams Automobile Salesman Relationship Specialty Start Date End Date Dallas Martin CNP [address] [place] [phone] PCP - General Family Medicine 02/08/25 documented as of this encounter
--- OUTSIDE RECORDS SUMMARY | 2025-02-21 09:45 | XMS_ITS | Encounter Summary ---
Author Organization [email or web address] Address [address] [facility] 7 [place] [address] Care Team Providers Care Senior Infrastructure Architect Name Role Phone Dallas Martin CNP Primary Care Provider [phone] Reason for Visit * Reason Onset Date Comments Med Refill 02/16/2025 Encounter Details Date Type Department Care Team ([facility] st Contact Info) Description 02/16/2025 Refill [facility] [address] [place], [place] [phone] Dallas Martin CNP [address] [place] [address] Gastroesophageal reflux disease, unspecified whether esophagitis present Social History Tobacco Use Types Packs/Day Years [...] documented as of this encounter Visit Diagnoses Diagnosis Gastroesophageal reflux disease, unspecified whether esophagitis present documented in this encounter Additional Health Concerns Active Problems Noted Date Diagnosed Date Help patients manage their type 2 diabetes 02/08 Patient has chronic kidney disease 02/08/2025 Weekly blood pressure task 02/08/2025 documented as of this encounter Care Teams Senior Infrastructure Architect Relationship Specialty Start Date End Date Dallas Martin CNP [address] [place] [phone] PCP - General Family Medicine 02/08/25 documented as of this encounter
--- OUTSIDE RECORDS SUMMARY | 2025-02-21 09:45 | XMS_ITS | Encounter Summary ---
Author Organization [employer] Address [address] [facility] 7t [place] [address] Care Team Providers Care Museum Security Chief Name Role Phone Dallas Martin ROSEMARY Primary Care Provider [phone] Encounter Details Date Type Department Care Team (Latest Contact Info) Description 02/20/2025 Travel Social History Tobacco Use Types Packs/Day [...] -2 Score 1 02/20/2025 9:36 AM EST Pineda-ColonLaura MA * Little interest or pleasure in [...] half the days 02/20/2025 9:36 AM EST D suarez-Shawna Bergeron MA * Feeling tired or having little energy Answer Date of Assessment Author More than half the days 02/20/2025 9:36 AM EST D suarez-ColonShawna MA * Poor appetite or overeating Answer Date of Assessment Author More than half the days 02/20/2025 9:36 AM EST D suarez-Shawna Bergeron MA * Feeling bad about yourself - [...] Not at all 02/20/2025 9:36 AM ZORA PfeifferCo Shawna woods MA * Patient Health Questionnaire-9 Score Answer Date of Assessment Author 8 02/20/2025 9:36 AM ZORA PfeifferCo Shawna woods MA * Over the last [...] documented as of this encounter Care Teams Museum Security Chief Relationship Specialty Start Date End Date Dallas Martin CNP [address] [place] [phone] PCP - General Family Medicine 02/08/25 documented as of this encounter
--- OUTSIDE RECORDS SUMMARY | 2025-02-21 09:45 | XMS_ITS | Clinical Summary ---
Author Organization [employer] Address [address] [facility] 7t [place] [address] Care Team Providers Care Loss Prevention Auditor Name Role Phone Dallas Martin ROSEMARY Primary Care Provider [phone] [phone] Allergies No known active allergies Medications PEG 3350 (Glycolax, Miralax) 2 gram packet Take 17 g by mouth. 2025 Active Na Sulfate-K Sulfate-Mg Sulf (Suprep Bowel Prep Kit) 17.5-3.13-1.6 GM/177ML solution See Instructions, see colonoscopy instructions, # 1 kit, 0 Refills, Maintenance, 01/22/25 5:03:00 PM EST, [id number], Partial fill upon patient request if the prescription is for a schedule II opioid drug., see colonoscopy instructions, 160, cm, 01/22/25 16:19:00 EST, Height, 57.5, kg, 01/19/25 15:50:00 EST, Dry Weight Active pantoprazole (ProtoNix) 40 MG EC tablet Take 40 mg by mouth. Active psyllium (Metamucil) 58.6 % packet Take 3.4 g by mouth. 2025 Active glipiZIDE (Glucotrol) 5 MG tabletIndicatio ns:Type 2 diabetes mellitus with other specified complication, without long-term current use of insulin (HCC) Take 1 tablet (5 mg) by mouth before breakfast and before evening meal. 60 tablet 11 Active lisinopril 2.5 MG tabletIndicatio ns:Type 2 diabetes mellitus with other specified complication, without long-term current use of insulin (HCC) Take 1 tablet (2.5 mg) by mouth Once per day. 30 tablet 025 2025 Active gabapentin (Neurontin) 400 MG capsuleIndicati ons:Neuropathy Take 1 capsule (400 mg) by mouth 3 times daily. 90 capsule 025 2025 Active atorvastatin (Lipitor) 10 MG tabletIndicatio ns:Type 2 diabetes mellitus with other specified complication, without long-term current use of insulin (HCC) Take 1 tablet (10 mg) by mouth Once per day. 30 tablet 025 2025 Active omega-3 acid ethyl esters (Lovaza) 1 g capsuleIndicati ons:Type 2 diabetes mellitus with other specified complication, without long-term current use of insulin (HCC) Take 1 capsule (1 g) by mouth 2 times daily. 60 capsule 025 2025 Active famotidine (Pepcid) 20 MG tabletIndicatio ns:Gastroesopha geal reflux disease, unspecified whether esophagitis present Take 1 tablet (20 mg) by mouth 2 times daily. 60 tablet 025 2025 Active Probiotic, Lactobacillus, capsuleIndicati ons:Gastroesoph ageal reflux disease, unspecified whether esophagitis present Take 1 capsule by mouth Once per day. 30 capsule 025 2025 Active FREESTYLE LITE test stripIndication s:Type 2 diabetes mellitus with other specified complication, without long-term current use of insulin (HCC) Use to test blood sugar 3 times daily 100 each 025 2025 Active Lancets miscIndications :Type 2 diabetes mellitus with other specified complication, without long-term current use of insulin ([facility]) Use to test blood sugar 3 times daily 100 each Active Alcohol Swabs 70 % padsIndications :Type 2 diabetes mellitus with other specified complication, without long-term current use of insulin ([facility]) Use to test blood sugar 3 times daily 100 each Active Blood Glucose Monitoring Suppl (FreeStyle [place] Lite) w/Device kitIndications: Type 2 diabetes mellitus with other specified complication, without long-term current use of insulin ([facility]) Use to test blood sugar 3 times daily 1 kit Active Estradiol (Estrace) 0.01 % creamIndication s:Genitourinary syndrome of menopause Insert 0.5 g into the vagina every other day. 42.5 g 3 025 2025 Active senna (Senokot) 8.6 MG tabletIndicatio ns:Constipation , unspecified constipation type Take 2 tablets (17.2 mg) by mouth at bedtime. 120 tablet 025 2025 Active glipiZIDE (Glucotrol) 5 MG tablet Take 5 mg by mouth. 2024 Discontinued(R eorder (will not trigger notification to Pharmacy)) Encounters Date Type Department Care Team Description 02/20/2025 3:20 PM EST Office Visit [facility] [address] [place] [address] [phone] Constipation, unspecified constipation type (Primary Dx); Right upper quadrant pain; Dysuria 02/20/2025 Travel 02/20/2025 Telephone [facility] [address] [place] [address] Dallas Martin CNP Appointment Request 02/16/2025 Refill [facility] [address] [place] [address] Dallas Martin CNP Gastroesophageal reflux disease, unspecified whether esophagitis present 02/11/2025 Telephone [facility] [address] [place] [address] Dallas Martin CNP Medication Question 02/08/2025 10:45 AM EST Office Visit [facility] [address] [place] [address] Dallas Martin CNP Type 2 diabetes mellitus with other specified complication, without long-term current use of insulin ([facility]) (Primary Dx); Neuropathy; Gastroesophageal reflux disease, unspecified whether esophagitis present; Encounter to establish care; Encounter for immunization; Genitourinary syndrome of menopause 02/08/2025 Telephone [facility] [address] [place] [address] [phone] Ellen Barber RN 02/08/2025 Travel 02/08/2025 Telephone [facility] [address] [place] [address] Shawna Rocha MA chart prep 02/06/2025 Population Health Risk Score [facility] [address] [place] [phone] Provider, Population Health Generic from Last 3 [...] Mass Index 22.96 02/20/2025 3:50 PM EST Plan of Treatment Health Maintenance Due Date Last Done Comments CT Colonography 1976 Colonoscopy 1976 Colorectal Cancer Screening 1976 FIT DNA/Cologuard 1976 FIT 1976 FOBT 1976 Sigmoidoscopy 1976 Diabetes: Foot Exam 1986 Eye Exam 1986 Family Planning (PISQ) 11/21/1991 Pneumococcal Vaccine: Pediatrics (0 to 5 Years) and At-Risk Patients (6 to 49) Years (1 of 2 - PCV) 11/21/1995 Mammogram 2016 Hepatitis B Vaccines (2 of 2 - CpG 2-dose series) 03/08/2025 02/08/2025 Diabetes: Hemoglobin A1C 08/09/2025 025, 02/08/2025 COVID-19 Vaccine (1 - 2024-2 6 season) 2026 Postponed from 11/05 (Patient Refused) Diabetes: Urine Protein Screening 02/08/2026 02/08/2025 Lipid Panel 02/08/2026 02/08/2025 Tobacco Screening 02/08/2026 02/08/2025 Alcohol/Substance Use Screening 02/20/2026 02/20/2025 Depression Screening 02/20/2026 02/20/2025, 02/20/2025 Disability Screening 02/20/2026 02/20/2025 SDOH Screening 02/20/2026 02/20/2025 Zoster Vaccines (1 of 2) 2026 DTaP/Tdap/Td Vaccines (2 - T d or Tdap) 02/08/2035 02/08/2025 RSV Patients and Patients Aged 60 years or older (1 - 1-dose 75+ series) 11/21/2051 HIV Screening Completed 02/08/2025 Hepatitis C Screening Completed 02/08/2025 Influenza Vaccine Completed 02/08/2025 HIB Vaccines Aged [...] DIPSTICK Routine 02/20/2025 5:24 PM EST Dysuria ALBUMIN, RANDOM URINE W/CREATININE Routine 02/08/2025 12:50 [...] from Last 3 Months Results * POCT urinalysis dipstick manually resulted (CPT 87195) (02/20/2025 5:24 PM EST) Color, UA Yellow [...] Media Lot # [id number] Lot# Expiration Date Urine (Urine, Random) 02/20/2025 5:24 PM EST Zara Thao NP POINT OF CARE TEST ENTER/EDIT O RDERABLES Final Result * Albumin, Random Urine W/Creatinine (02/08/2025 12:50 PM EST) Creatinine, Urine 83.29 mg/dL [facility] Microalbumin Urine 13.0 mg/L [facility] Microalbum Creatinine Ratio Ur 15.6 <30 ug/mg cr [facility] Comment:Albumin/Creatinine R atio Reference Ranges: Normal: < 30 ug/mg creatinine Microalbuminuria: 30 - 300 ug/mg creatinineClinical Albuminuria: > 300 ug/mg creatinine Urine (Urine, Random) 02/08/2025 12:50 PM EST 02/08/2025 2:09 PM EST Dallas Martin [facility] URINE ORDERABLES Laya l Result [facility] [address] [place] [phone] * Hemoglobin A1c (02/08/2025 12:48 PM EST) Hemoglobin A1c 5.9 <6.0 % [facility] Comment:Hemoglobin A1C Refer ence Range Adults: 4.8 - 6.0 % Non diabetic: < 6.0 % Goal: < 7.0 %Additional Action Suggested: > 8.0 %Note: Hemoglobin A1c results are invalid for patients with abnormal amounts of HbF. Blood transfusions may impact the HbA1c concentration in the patient sample. Estimated Average Glucose 123 mg/dL [facility] Comment:eAG = Estimated ave rage glucose which is %A1C expressed asaverage glucose, using the formula of the M5C-TjeufjqQughtgh Glucose study (ADAG), Diabetes Care, Vol.31,#8,Oct. 2007 Blood Venous blood specimen / Unknown 02/08/2025 12:48 PM EST 02/08/2025 2:09 PM EST [facility] LAB BLOOD ORDERABLES Laya l Result Performing Organization Address [facility] Co de Phone Number [facility] [address] [place] [address] [phone] * (ABNORMAL) Lipid Panel, Standard (02/08/2025 12:48 PM EST) Triglycerides 665(H) <150 mg/dL [facility] Comment:Desirable Triglyceri de: less than 150 mg/dLBorderline High Triglyceride 150-199 mg/dLHigh Triglyceride: 200-499 mg/dLVery High Triglyceride: greater than or equal to 5OO mg/dL Cholesterol 239(H) <200 mg/dL [facility] Comment:Desirable Cholestero l: less than 200 mg/dLBorderline High Cholesterol: 200-239 mg/dLHigh Cholesterol: greater than 239 mg/dL LDL Cholesterol Calculated TNP <100 mg/dL [facility] Comment:Unable to calculate the LDL. The formula of Friedwald,Herrera, and David is only valid if the triglycerides areless than 400 mg/dl. HDL Cholesterol 40(L) >40 mg/dL [facility] Comment:Desirable HDL: great er than 40 mg/dL Note: This HDL assay may give artificially low results in patients with liver disease. Blood Venous blood specimen / Unknown 02/08/2025 12:48 PM EST 02/08/2025 2:09 PM EST [facility] LAB BLOOD ORDERABLES Laya l Result Performing Organization Address City/[facility]/ZIP Co de Phone Number [facility] [address] [place] [address] [phone] * (ABNORMAL) Comprehensive Metabolic Panel (02/08/2025 12:48 PM EST) Sodium 143 135 - 145 mmol/L [facility] Potassium 4.4 3.3 - 5.1 mmol/L [facility] Chloride 106 96 - 108 mmol/L [facility] Carbon Dioxide 28 22 - 29 mmol/L [facility] Anion Gap 13 12 - 20 [facility] Urea Nitrogen (BUN) 14 9 - 16 mg/dL [facility] Creatinine, Serum 0.59 0.5 - 1.4 mg/dL [facility] Estimated Glomerular Filt Rate >60 [facility] Comment:Chronic Kidney Disea se: Estimated GFR < 60 mL/min/1.02z4Vshaou Kidney Disease: Estimated GFR < 15 mL/min/1.73m2 Glucose 101 60 - 115 mg/dL [facility] Calcium 10.0 8.4 - 10.2 mg/dL [facility] Bilirubin, Total 0.4 0.0 - 1.0 mg/dL [facility] Aspartate Amino Transferase 21 5 - 31 U/L [facility] Alanine Aminotransferase 27 0 - 31 U/L [facility] Total Protein 8.5(H) 6.5 - 8.0 g/dL [facility] Albumin Level 4.8 3.5 - 5.0 g/dL [facility] Alkaline Phosphatase 50 39 - 117 U/L [facility] Blood Venous blood specimen / Unknown 02/08/2025 12:48 PM EST 02/08/2025 2:09 PM EST [facility] LAB BLOOD ORDERABLES Laya l Result Performing Organization Address [facility] de Phone Number [facility] [address] [place] [phone] * Hepatitis C Antibody with Reflex to HCV, RNA, Quantitative, Real-Time PCR (02/08/2025 12:45 PM EST) Hepatitis C Antibody Nonreactive Nonreactive [facility] Comment:Antibodies to HCV no t detected; does not exclude early acuteHCV infection. Blood Venous blood specimen / Unknown 02/08/2025 12:45 PM EST 02/08/2025 2:09 PM EST [facility] LAB BLOOD ORDERABLES Laya l Result Performing Organization Address City/[facility]/ZIP Co de Phone Number [facility] [address] [place] [address] [phone] * HIV-1/2 Antigen and Antibodies, Fourth Generation, with Reflexes (02/08/2025 12:45 PM EST) Pathologist [facility] HIV AB/AG Nonreactive Nonreactive [facility] Comment:HIV-1 p24 Ag and/or HIV-1/HIV-2 Ab not detected.A test result that is nonreactive does not exclude thepossibility of exposure to or infection with HIV-1 and/orHIV-2. Nonreactive results in this assay for individualswith prior exposure to HIV-1 and/or HIV-2 may be due toantigen and antibody levels that are below the limit ofdetection of this assay.The [employer] HIV Ag/Ab Combo assay result andsupplemental assay results should be interpreted inconjunction with the patient's clinical presentation,history and other laboratory results. If the results areinconsistent with clinical evidence, additional testing issuggested to confirm the result. Blood Venous blood specimen / Unknown 02/08/2025 12:45 PM EST 02/08/2025 2:09 PM EST Result [facility] LAB BLOOD ORDERABLES Laya l Result Performing Organization Address [facility] Co de Phone Number [facility] [address] [place] [address] [phone] * POCT glucose manually resulted (02/08/2025 12:10 PM EST) [facility] Glucose Blood, POC 101 60 - 200 mg/dL QC Media Lot # Comment:[id number] Lot# Expiration Date Comment:06/11/2025 Blood Capillary blood specimen / Unknown 02/08/2025 12:10 PM EST [facility] POINT OF CARE TEST ENTER/ EDIT ORDERABLES Final Result * POCT A1c (02/08/2025 12:09 PM EST) Hemoglobin A1C 5.7 4.0 - 5.7 % QC Media Lot # Comment:[id number] Lot# Expiration Date Comment:02/08/2027 Blood 02/08/2025 12:0 9 PM EST [facility] POINT OF CARE TEST ENTER/ EDIT ORDERABLES Edited Result - Final * (ABNORMAL) CBC auto differential (02/08/2025 10:48 AM EST) White Blood Count 11.9(H) 4.8 - 10.8 X10*3/uL [facility] Red Blood Count 4.93 4.20 - 5.50 X10*6/uL [facility] Hemoglobin 13.8 12.0 - 16.0 g/dl [facility] Hematocrit 42.2 37.0 - 47.0 % [facility] Mean Corpuscular Volume 85.6 80.0 - 98.0 fL [facility] Mean Corpuscular Hemoglobin 28.0 27.0 - 33.0 pg [facility] Mean Corpuscular HGB Conc 32.7 31.0 - 35.0 g/dl [facility] Red Cell Distribution Width 13.4 11.0 - 16.0 % [facility] Platelet Count 392 160 - 400 X10*3/uL [facility] Mean Platelet Volume 9.7 9.4 - 12.3 fL [facility] Neutrophils Percent Auto 66.8 45 - 73 % [facility] Imm Gran Pct Auto 0.3 0.0 - 0.4 % [facility] Lymphocytes Percent Auto 25.3 20 - 40 % [facility] Monocytes Percent Auto 6.1 2 - 11 % [facility] Eosinophils Percent Auto 0.8 0 - 4 % [facility] Basophils Percent Auto 0.7 0 - 2 % [facility] NRBC Pct Auto 0.0 0.0 - 0.2 /100WBC [facility] Neutrophils Absolute Auto 8.0 2.0 - 8.3 x10*3/uL [facility] Imm Gran Abs Auto 0.04(H) 0.00 - 0.03 X10*3/uL [facility] Lymphocytes Absolute Auto 3.0 1.2 - 4.9 X10*3/uL [facility] Monocytes Absolute Auto 0.7 0.1 - 1.2 X10*3/uL [facility] Eosinophils Absolute Auto 0.1 0.0 - 0.4 X10*3/uL [facility] Basophils Absolute Auto 0.1 0.0 - 0.2 X10*3/uL [facility] NRBC Abs Auto 0.000 0.0 - 0.012 X10*3/uL [facility] Blood Venous blood specimen / Unknown 02/08/2025 10:48 AM EST 02/08/2025 2:09 PM EST Dallas Martin CNP LAB BLOOD ORDERABLES Laya miller Result Performing Organization Address City/State/[facility] Co de Phone Number [facility] [address] [place] [address] [phone] from Last 3 Months Additional Health Concerns Active Problems Noted Date Diagnosed Date Help patients manage their type 2 diabetes 02/08 Patient has chronic kidney disease 02/08/2025 Weekly blood pressure task 02/08/[address] [place] [address] [place] [address] C3 Care Teams Loss Prevention Auditor Relationship Specialty Start Date End Date Dallas Martin CNP [address] [place] [address] [phone] PCP - General Family Medicine 02/08/25
[2025-02-21 11:05] LABS: MANUAL DIFF FLAG NO
[2025-02-21 11:29] LABS: Hematocrit 39.4 % (37.0-47.0); Hemoglobin 12.8 g/dl (12.0-16.0); Imm Gran Abs Auto 0.02 X10*3/uL (0.00-0.03); Imm Gran Pct Auto 0.3 % (0.0-0.4); Lymphocytes Absolute Auto 2.1 X10*3/uL (1.2-4.9); Mean Corpuscular HGB Conc 32.5 g/dl (31.0-35.0); Mean Corpuscular Hemoglobin 27.7 pg (27.0-33.0); Mean Corpuscular Volume 85.3 fL (80.0-98.0); NRBC Abs Auto 0.000 X10*3/uL (0.0-0.012); NRBC Pct Auto 0.0 /100WBC (0.0-0.2); Platelet Count 382 X10*3/uL (160-400); Red Blood Count 4.62 X10*6/uL (4.20-5.50); White Blood Count 6.8 X10*3/uL (4.8-10.8)
[2025-02-21 13:36] LABS: Alanine Aminotransferase 15 U/L (0-31); Albumin Level 4.4 g/dL (3.5-5.0); Alkaline Phosphatase 38 U/L (39-117); Amylase 56 U/L (28-100); Anion Gap 12 (12-20); Aspartate Amino Transferase 22 U/L (5-31); Blood Urea Nitrogen 19 mg/dL (9-16); Calcium 9.9 mg/dL (8.4-10.2); Carbon Dioxide 29 mmol/L (22-29); Chloride 103 mmol/L (96-108); Cholesterol 177 mg/dL (<200); Estimated Glomerular Filt Rate > 60; HDL Cholesterol 46 mg/dL (>40); Lipase 39 U/L (8-78); Potassium 4.9 mmol/L (3.3-5.1); Sodium 139 mmol/L (135-145); Total Protein 7.6 g/dL (6.5-8.0); Triglycerides 241 mg/dL (<150)
== END 2025-02-21 08:57 | disposition home or self-care (01) ==
LOC: HO.HHCL 08:56
PROVIDERS: Visit Provider Nurse Practitioner
DX: R10.11 Right upper quadrant pain (principal)
CPT/HCPCS: 36415; 80053; 80061; 82150; 83690; 85025